=== PATIENT | male | born 1955 | race Caucasian/White ===

== ENCOUNTER → 2019-11-19 08:38 | Outpatient (BNVA) | payer MEDICARE, SELFPAY | PROVIDERS: Family Provider Family Medicine; Visit Provider Nurse Practitioner | DX: F20.5 Residual schizophrenia (principal); F17.210 Nicotine dependence, cigarettes, uncomplicated | CPT/HCPCS: 99213 ==

== ENCOUNTER → 2020-02-11 08:23 | Outpatient (BNVA) | payer MEDICARE, SELFPAY | PROVIDERS: Family Provider Family Medicine; Visit Provider Nurse Practitioner | DX: F20.5 Residual schizophrenia (principal) | CPT/HCPCS: 99213 ==

== ENCOUNTER → 2020-04-28 14:17 | Outpatient (BNVA) | payer MEDICARE, SELFPAY | PROVIDERS: Family Provider Family Medicine; Visit Provider Family Medicine | DX: R31.9 Hematuria, unspecified (principal); F20.5 Residual schizophrenia; Z68.21 Body mass index [BMI] 21.0-21.9, adult; F10.929 Alcohol use, unspecified with intoxication, unspecified; F17.210 Nicotine dependence, cigarettes, uncomplicated | CPT/HCPCS: 80053; 81003 ==

== ENCOUNTER → 2020-05-10 07:58 | Outpatient (BNVA) | payer MEDICARE, SELFPAY | PROVIDERS: Family Provider Family Medicine; Visit Provider Nurse Practitioner | DX: F20.5 Residual schizophrenia (principal); F17.219 Nicotine dependence, cigarettes, with unspecified nicotine-induced disorders; Z79.899 Other long term (current) drug therapy | CPT/HCPCS: 99213 ==

== ENCOUNTER → 2020-06-23 08:18 | Outpatient (BNVA) | payer MEDICARE, SELFPAY | PROVIDERS: Family Provider Family Medicine; Visit Provider Nurse Practitioner | DX: F20.5 Residual schizophrenia (principal); F17.219 Nicotine dependence, cigarettes, with unspecified nicotine-induced disorders | CPT/HCPCS: 99213 ==

== ENCOUNTER → 2020-09-06 08:20 | Outpatient (BNVA) | payer MEDICARE, SELFPAY | PROVIDERS: Family Provider Family Medicine; Visit Provider Nurse Practitioner | DX: F20.5 Residual schizophrenia (principal); F17.219 Nicotine dependence, cigarettes, with unspecified nicotine-induced disorders | CPT/HCPCS: 99213 ==

== ENCOUNTER → 2020-11-25 09:08 | Outpatient (BNVA) | payer MEDICARE, SELFPAY | PROVIDERS: Family Provider Family Medicine; Visit Provider Nurse Practitioner | DX: F20.5 Residual schizophrenia (principal); F17.219 Nicotine dependence, cigarettes, with unspecified nicotine-induced disorders | CPT/HCPCS: 99214 ==

== ENCOUNTER → 2020-12-29 08:35 | Outpatient (BNVA) | payer MEDICARE, SELFPAY | PROVIDERS: Family Provider Family Medicine; PCP Family Medicine; Visit Provider Family Medicine | DX: I10 Essential (primary) hypertension (principal); F17.219 Nicotine dependence, cigarettes, with unspecified nicotine-induced disorders | CPT/HCPCS: 80053; 80061; 81015; 82043; 85025 ==

== ENCOUNTER → 2021-02-23 11:55 | Outpatient (BNVA) | payer MEDICARE, SELFPAY | PROVIDERS: Family Provider Family Medicine; PCP Family Medicine; Visit Provider Nurse Practitioner | DX: F20.5 Residual schizophrenia (principal); F17.219 Nicotine dependence, cigarettes, with unspecified nicotine-induced disorders | CPT/HCPCS: 99214 ==

== ENCOUNTER 2021-03-09 10:44 | Outpatient (CLI) | payer MEDICARE, SELFPAY ==
--- NOTE | 2021-03-09 11:00 | USCV_ITS ---
Al Han Age: 65 Gender: M : 1955 Exam Date: 03/09/2021 11:09 Ordering Phys: Llua Torres DO Technologist: Exam [place] [facility] [place]: AAA HISTORY: Diameter (cm) AP x Transverse x Length Velocity (cm/s) Waveform Prox Aorta: 2.11 x 2.33 x 51.50 Biphasic Mid Aorta: 2.66 x 2.72 x 61.90 Biphasic Distal Aorta: 3.03 x 3.17 x 43.30 Biphasic Right Iliac Prox: 1.10 x 1.50 x 79.10 Biphasic Left Iliac Prox: 1.31 x 1.41 x 94.10 Biphasic Stent Prox Landing x x Aneurysmal Sac Max x x Lt Lat Sac Dim Rt Lat Sac Dim Stent Dist Landing x x Right Iliac Stent x x Left Iliac Stent x x Right Renal Art Left Renal Art FINDINGS: Minimal to moderate plaque in the abdominal aorta. Fusiform dilatation of the distal abdominal aorta. Normal Doppler flow velocity CONCLUSIONS 1. Small fusiform dilatation of the infrarenal aorta measuring 3.03 x 3.17 cm. 2. Ectatic perirenal aorta 3. Mild diffuse plaques in the abdominal aorta No similar previous studies are available for comparison Dr Dmitri Anderson MD [facility] (Electronically Signed) Final Date: 09 March 2021 17:57 S
== END 2021-03-09 10:45 | disposition home or self-care (01) ==
PROVIDERS: PCP Family Medicine; Visit Provider Family Medicine
DX: I71.4 Abdominal aortic aneurysm, without rupture (principal)
CPT/HCPCS: 93978

== ENCOUNTER → 2021-05-18 12:47 | Outpatient (BNVA) | payer MEDICARE, SELFPAY | PROVIDERS: Family Provider Family Medicine; PCP Family Medicine; Visit Provider Nurse Practitioner | DX: F20.5 Residual schizophrenia (principal); F17.219 Nicotine dependence, cigarettes, with unspecified nicotine-induced disorders; F10.21 Alcohol dependence, in remission | CPT/HCPCS: 80061; 99214 ==

== ENCOUNTER → 2021-08-17 11:02 | Outpatient (BNVA) | payer MEDICARE, SELFPAY | PROVIDERS: Family Provider Family Medicine; PCP Family Medicine; Visit Provider Nurse Practitioner | DX: F20.5 Residual schizophrenia (principal); F17.219 Nicotine dependence, cigarettes, with unspecified nicotine-induced disorders; F10.21 Alcohol dependence, in remission | CPT/HCPCS: 80053; 99214; G0103 ==

== ENCOUNTER → 2021-11-13 09:05 | Outpatient (BNVA) | payer MEDICARE, SELFPAY | PROVIDERS: Family Provider Family Medicine; PCP Family Medicine; Visit Provider Urology | DX: Z85.46 Personal history of malignant neoplasm of prostate (principal) | CPT/HCPCS: G0103 ==

== ENCOUNTER → 2021-11-23 11:11 | Outpatient (BNVA) | payer MEDICARE, SELFPAY | PROVIDERS: Family Provider Family Medicine; PCP Family Medicine; Visit Provider Nurse Practitioner | DX: F20.5 Residual schizophrenia (principal); F17.219 Nicotine dependence, cigarettes, with unspecified nicotine-induced disorders; F10.21 Alcohol dependence, in remission | CPT/HCPCS: 99214 ==

== ENCOUNTER 2022-02-08 10:20 | Outpatient (CLI) | payer MEDICARE, SELFPAY ==
--- NOTE | 2022-02-08 11:15 | USCV_ITS ---
HanAl vasquez Age: 66 Gender: M : 1955 Exam Date: 02/08/2022 10:48 Ordering Phys: Lula Torres DO Technologist: Exam Location: [facility] – [place] Indication: aaa HISTORY: Diameter (cm) AP x Transverse x Length Velocity (cm/s) Waveform Prox Aorta: 1.41 x 1.47 x 78.40 Mid Aorta: 4.03 x 4.06 x 80.10 Distal Aorta: 4.09 x 4.00 x 51.20 Right Iliac Prox: 1.47 x 1.42 x 105.60 Left Iliac Prox: 1.20 x 1.39 x 158.40 Stent Prox Landing x x Aneurysmal Sac Max x x Lt Lat Sac Dim Rt Lat Sac Dim Stent Dist Landing x x Right Iliac Stent x x Left Iliac Stent x x Right Renal Art Left Renal Art FINDINGS: Comparison:. 03/09/21 A fusiform abdominal aortic aneurysm is noted with a maximal diameter of 4.1 cm. The exact measurement is difficult due to the calcification and poor definition of the posterior aorta wall. Increase is size since the prior exam. There is evidence of atherosclerotic plaque no significan stenosis in the right common iliac artery. There is evidence of atherosclerotic plaque no significan stenosis in the left common iliac artery. CONCLUSIONS Mild increase in size of the AAA since 03/09/21. Maximum diameter of 4.1 cm. Recommend CTA evaluation to confirm size. Difficult to see posterior wall of the aorta. Dr. Maria Elena Parisi DO (Electronically Signed) Final Date: 08 Feb 2022 14:00 S
== END 2022-02-08 10:21 | disposition home or self-care (01) ==
LOC: RAD 10:22
PROVIDERS: PCP Family Medicine; Visit Provider Family Medicine
DX: I71.4 Abdominal aortic aneurysm, without rupture (principal)
CPT/HCPCS: 93978

== ENCOUNTER → 2022-02-15 11:21 | Outpatient (BNVA) | payer MEDICARE, SELFPAY | PROVIDERS: PCP Family Medicine; Visit Provider Nurse Practitioner | DX: F20.5 Residual schizophrenia (principal); F17.219 Nicotine dependence, cigarettes, with unspecified nicotine-induced disorders; F10.21 Alcohol dependence, in remission | CPT/HCPCS: 80053; 82043; 85025; 99214 ==

== ENCOUNTER 2022-03-08 10:09 | Outpatient (CLI) | payer MEDICARE, SELFPAY ==
--- NOTE | 2022-03-08 10:21 | CT_ITS ---
WS: [id number] CT ANGIOGRAPHY ABDOMEN AORTA HISTORY: aaa TECHNIQUE: CT angiogram is performed during IV injection. Reformation images reviewed. All CT scans a t [employer] use at least one of these dose optimization techniques: automated exposure contro l; mA and/or kV adjustment per patient size (includes targeted exams where dose is matched to clinica l indication); or iterative reconstruction. CONTRAST: Omnipaque 350; 95 mL IV. DLP: 512.71 mGy.cm COMPARISON: Ultrasound 02/08/2022 Chronic emphysematous changes at the lung bases. No pneumonia. Normal size heart. Small hiatal hernia . Mild tricuspid regurgitation into hepatic veins. Abdominal aorta: Tortuous atherosclerotic changes throughout the aorta with mild dilatation. Maximum diameter of aorta is 3.6 cm. This is less than the ultrasound evaluation which must have been overest imated. Moderate calcified plaque with mild intimal thickening throughout. Mild ectasia of the suprar enal aorta. Aneurysm tapers to the bifurcation. Moderate calcification involving the proximal iliac a rteries. There is at least moderate stenosis involving the proximal iliac arteries bilaterally, great er stenosis on the RIGHT. No complete occlusion. Celiac axis and SMA are patent. Renal arteries are p atent with a mild stenosis involving the LEFT renal artery. Early enhancement of the liver and spleen and pancreas are negative for any acute abnormalities. Norm al bile duct. No adrenal mass. LEFT renal cyst measures 5.0 x 4.0 cm. No obstruction of either kidney . No ascites or adenopathy. Slightly contracted gallbladder. CT/CT angio abdomen [id number] IMPRESSION: 1. Marked tortuosity, ectasia and atherosclerosis abdominal aorta. 2. Maximum diameter of the abdominal aorta is 3.6 cm. 3. Moderate to high-grade stenosis involving the proximal iliac arteries bilat erally, greatest on the RIGHT. 4. LEFT renal cyst.
[2022-03-08] MEDS: iohexol 350 mg/mL 100 mL Btl IV (10:52)
== END 2022-03-08 10:10 | disposition home or self-care (01) ==
LOC: RAD 10:10
PROVIDERS: PCP Family Medicine; Visit Provider Family Medicine
DX: I71.4 Abdominal aortic aneurysm, without rupture (principal); I70.0 Atherosclerosis of aorta; I77.811 Abdominal aortic ectasia; I70.8 Atherosclerosis of other arteries; N28.1 Cyst of kidney, acquired
CPT/HCPCS: 74175

== ENCOUNTER → 2022-06-07 10:40 | Outpatient (BNVA) | payer MEDICARE, SELFPAY | PROVIDERS: PCP Family Medicine; Visit Provider Internal Medicine | DX: I73.9 Peripheral vascular disease, unspecified (principal); I10 Essential (primary) hypertension; F17.210 Nicotine dependence, cigarettes, uncomplicated | CPT/HCPCS: 99204 ==

== ENCOUNTER 2022-06-17 01:27 | Emergency (ER) | payer MEDICARE, SELFPAY ==
[2022-06-17 01:31] VITALS: BP 146/86; PULSE 86; RESP 16; TEMP 36.7; O2SAT 94; BMI 23.0
--- NOTE | 2022-06-17 02:16 | XRR_ITS ---
PROCEDURE INFORMATION: Exam: XR Chest Exam date and time: 06/17/2022 2:26 AM Age: 66 years old Clinical indication: Pain; Chest pressure; Additional info: SOB TECHNIQUE: Imaging protocol: Radiologic exam of the chest. Views: 1 view. COMPARISON: CR XR chest 1V [id number] 12/02/2016 6:17 PM FINDINGS: Lungs: There is no evidence of focal pulmonary consolidation. There is mild pulmonary hyperexpansion. Pleural spaces: No pleural effusion or pneumothorax. There is redemonstration of multiple calcified left lung granulomas, stable. Heart/Mediastinum: The heart and mediastinum are normal in size. Bones/joints: Old right clavicular fracture. XR/XR chest 1V portable [id number] IMPRESSION: 1. No acute findings. 2. Mild pulmonary hyperexpansion.
[2022-06-17 02:32] VITALS: BP 132/98
[2022-06-17 02:55] LABS: Basophils # 0.1 10^3/uL (0.0-0.1); Basophils % 0.6 %; Eosinophils # 0.1 10^3/uL (0.0-0.8); Eosinophils % 1.3 %; Hematocrit 39.6 % (42.0-52.0); Hemoglobin 13.9 g/dL (11.7-16.6); Lymphocytes # 2.2 10^3/uL (0.8-4.8); Lymphocytes % 27.6 %; Mean Corpuscular HGB Conc 35.1 g/dL (30.0-36.0); Mean Corpuscular Hemoglobin 33.6 pg (28.0-34.0); Mean Corpuscular Volume 95.7 fl (80-94); Monocytes # 0.6 10^3/uL (0.2-0.9); Monocytes % 7.1 %; Neutrophils # 4.95 10^3/uL (1.8-7.7); Neutrophils % 63.1 %; Nucleated Red Blood Cells % 0 %; Platelet Count 184 10^3/cmm (130-400); Red Blood Count 4.14 10^6/uL (4.1-5.3); Red Cell Distribution Width 13.1 % (12.1-15.1); White Blood Count 7.8 10^3/uL (4.0-10.0)
[2022-06-17 03:13] LABS: Bilirubin Urine Negative (Negative); Blood Urine Large (Negative); Glucose Urine UA Negative (Normal); Ketones Urine Negative (Negative); Leukocyte Esterase Urine Negative (Negative); Nitrate Urine Negative; Protein Urine Negative; Urine Appearance Clear (CLEAR); Urine Color Yellow (Yellow); Urobilinogen Urine 0.2 mg/dL (Negative)
[2022-06-17 03:19] LABS: Add Urine Culture? Yes; Add Urine Microscopic? YES; Bacteria Urine TRACE /hpf; RBC Urine >100 /hpf (0-2); Squamous Epithelial Cell Urine 0-4 /hpf (0-5); WBC Urine 0-4 /hpf (0-5)
[2022-06-17 03:23] LABS: Amphetamines Screen Urine Negative (Negative); Barbiturates Screen Urine Negative (Negative); Benzodiazepines Screen Urine Negative (Negative); Cocaine Screen Urine Negative (Negative); Opiate Screen Urine Negative (Negative); PCP Screen Urine Negative (Negative); THC Screen Urine Negative (Negative)
[2022-06-17 03:26] LABS: Alanine Aminotransferase 10 U/L (0-41); Albumin Level 4.4 g/dL (3.5-5.2); Alkaline Phosphatase 91 U/L (40-130); Anion Gap 16.8 (5-19); Aspartate Amino Transferase 11 U/L (0-40); Blood Urea Nitrogen 6 mg/dL (8-23); Calcium 9.3 mg/dL (8.5-10.5); Carbon Dioxide 22 mmol/L (22-29); Chloride 96 mmol/L (98-107); Globulin 2.5 g/dL (1.3-4.6); Glomerular Filtration Rate 167.4 mL/min (90-130); Glucose 123 mg/dL (65-115); Osmolality Calculated 271 mOsm/kg (285-295); Potassium 3.8 mmol/L (3.5-5.1); Sodium 131 mmol/L (136-145); Total Bilirubin 0.4 mg/dL (0.15-1.2); Total Protein 6.9 g/dL (6.6-8.7)
[2022-06-17 03:29] LABS: Acetaminophen < 5.0 ug/mL (10-30); Alcohol Level < 10 mg/dL (0-10); Salicylate < 0.3 mg/dL (3-10)
--- NOTE | 2022-06-17 03:33 | ED.C_ITS ---
HPI - Psych General: Chief Complaint: Psychiatric Symptoms Stated Complaint: AMS Time Seen by Provider: 06/17/22 01:47 History of Present Illness: 66-year-old male gentleman with a history of schizophrenia. He presents with multiple complaints. First of all, he states that he has lice, which she has treated with 1 dose of permethrin. He also believes that he is septic, because he has been short of breath, more so than usual with a cough with sputum production. He denies any fever. He has had chills. No body aches. No abdominal pain or diarrhea. 's interview was somewhat difficult due to lack of concentration. He seems to have flight of ideas with some tangential speech. He also reacts to unseen stimuli. He states that he has received multiple threats from his neighbors, who have been harassing him both verbally and electronically. Associated symptoms: Reports auditory hallucinations and visual hallucinations; Deny homicidal ideation or suicidal ideation Review of Systems 2 Const: Reports: chills; Denies: fever(s) Eyes: Denies: change in vision ENMT: Denies: throat pain Card: Denies: chest pain or palpitations Resp: Reports: dyspnea and productive cough GI: Denies: abdominal pain, nausea, vomiting or diarrhea Neuro: Denies: headache(s) Psych: Reports: irritability, visual hallucinations and auditory hallucinations; Denies: suicidal ideation or homicidal ideation [facility] ED PFSH: Medical History Alcohol dependence, in remission Aortic aneurysm Last looked at on 03/05 - 3.1 cm Bladder cancer COPD (chronic obstructive pulmonary disease) Erectile dysfunction External otitis of left ear On combination antipsychotic drug therapy Psychiatric care Residual schizophrenia Surgical History S/P appendectomy S/P TURP Family History Other Cancer Diabetes Social History Smoking and tobacco status: current every day smoker cigarettes Packs smoked per day: 2 Smoking risk assessment/counseling performed?: Yes Tobacco counseling given: counseling >3 minutes Alcohol intake: former Physical Exam Const: COMMON NORMALS: no acute distress GENERAL APPEARANCE: cooperative; not ill appearing and not frail appearing HENMT: COMMON NORMALS: normocephalic, atraumatic and Normal external nose present HEAD & SCALP: normocephalic and atraumatic FACE & SINUS: normal facial exam and face symmetric NOSE: Normal external nose present and Normal nares present Eye: COMMON NORMALS: Equal, round and reactive pupils present and EOMs intact bilaterally PUPIL: Yes Equal, round and reactive pupils present Neck/C-Spine: COMMON NORMALS: full ROM GENERAL: Yes trachea midline Chest: CHEST: Yes Symmetrical chest wall rise Resp: COMMON NORMALS: normal respiratory effort, No use of accessory muscles and clear to auscultation bilaterally AUSCULTATION: clear to auscultation bilaterally Cardio: COMMON NORMALS: regular rate and regular rhythm RATE: regular rate RHYTHM: regular rhythm GI: COMMON NORMALS: Normal to inspection, nondistended, normoactive bowel s ounds present, Soft to palpation and non-tender PALPATION: Yes Soft to pa lpation Extremity: COMMON NORMALS: no pedal edema Neuro: GILBERT COMA SCALE: document GCS findings Jennings coma scale eye opening: Spontaneous Gilbert coma scale verbal response: Orientated Gilbert coma scale motor response: Obey commands Gilbert coma scale total score: 15 ON CALL NIAL NERVES: Yes CN normal except as noted SPEECH: speech normal Psych: COMMON NORMALS: speech normal, denies homicidal ideation and denies suicidal ideation ATTITUDE: Yes paranoid (mildly at times) ACTIVITY/MOTOR BEHAVIOR: Yes appropriate eye contact SPEECH: Yes normal speech THOUGHT PROCESS: Circumstantial thought process present, disorganized and Flight of ideas present THOUGHT CONTENT: No Suicidality present, No Homicidality present and Yes Hallucination(s) present auditory ATTENTION/CONCENTRATION: Yes attention grossly impaired MEMORY/COGNITION: Yes memory grossly intact and Yes cognition grossly intact INSIGHT: Fair insight present (Psych) and Limited insight present (Psych) JUDGEMENT: Fair judgement present (Psych) Skin: COMMON NORMALS: no rashes or lesions noted GENERAL SKIN EXAM: no rashes or lesions noted Course Vital Signs: Vital signs: Vital Signs Temperature 98.1 F 06/17/22 01:31 Pulse Rate 86 06/17/22 01:31 Respiratory Rate 16 06/17/22 01:31 Blood Pressure 132/98 06/17/22 02:32 Pulse Oximetry 94 06/17/22 01:31 Oxygen Delivery Me thod 06/17/22 01:31 MDM - Psych Medical Decision Making 66-year-old male with multiple complaints. He believes he is septic. His chest x-ray does not show an infiltrate. His CBC is normal. His BNP is not remarkable. His liver enzymes are not significantly elevated. His urinalysis shows hematuria without infection. The patient states that he is not feeling safe at home due to these Persecutory thoughts. He believes that his neighbors are out to get them. He exhibits some paranoia here. He denies suicidal or homicidal ideation. We are seeing if a bed is available in the [facility] for him. No beds available here. Since he is not suicidal or homicidal, he does not necessarily meet criteria for transfer to psychiatric facility. Medically he remained stable. He is not hypoxic. He will be allowed the choice to be discharged. Patient chose discharge ultimately. Lab Data : 06/17/22 02:50 06/17/22 02:50 Radiology Impressions Chest X-Ray 06/17/22 02:16 IMPRESSION: 1. No acute findings. 2. Mild pulmonary hyperexpansion. Laboratory Results WBC 7.8 10^3/uL (4.0-10.0) 06/17/22 02:50 RBC 4.14 10^6/uL (4.1-5.3) 06/17/22 02:50 Hgb 13.9 g/dL (11.7-16.6) 06/17/22 02:50 Hct 39.6 % (42.0-52.0) L 06/17/22 02:50 MCV 95.7 fl (80-94) H 06/17/22 02:50 MCH 33.6 pg (28.0-34.0) 06/17/22 02:50 MCHC 35.1 g/dL (30.0-36.0) 06/17/22 02:50 RDW 13.1 % (12.1-15.1) 06/17/22 02:50 Plt Count 184 10^3/cmm (130-400) 06/17/22 02:50 MPV 8.0 fL (7.4-10.4) 06/17/22 02:50 Neut % (Auto) 63.1 % 06/17/22 02:50 Lymph % (Auto) 27.6 % 06/17/22 02:50 [place] % (Auto) 7.1 % 06/17/22 02:50 Eos % (Auto) 1.3 % 06/17/22 02:50 Baso % (Auto) 0.6 % 06/17/22 02:50 Neut # (Auto) 4.95 10^3/uL (1.8-7.7) 06/17/22 02:50 Lymph # (Auto) 2.2 10^3/uL (0.8-4.8) 06/17/22 02:50 [place] # (Auto) 0.6 10^3/uL (0.2-0.9) 06/17/22 02:50 Eos # (Auto) 0.1 10^3/uL (0.0-0.8) 06/17/22 02:50 Baso # (Auto) 0.1 10^3/uL (0.0-0.1) 06/17/22 02:50 Nucleated RBC % (auto) 0 % 06/17/22 02:50 Nucleated RBCs # 0.0 /100WBC 06/17/22 02:50 Sodium 131 mmol/L (136-145) L 06/17/22 02:50 Potassium 3.8 mmol/L (3.5-5.1) 06/17/22 02:50 Chloride 96 mmol/L (98-107) L 06/17/22 02:50 Carbon Dioxide 22 mmol/L (22-29) 06/17/22 02:50 Anion Gap 16.8 (5-19) 06/17/22 02:50 BUN 6 mg/dL (8-23) L 06/17/22 02:50 Creatinine 0.5 mg/dL (0.7-1.2) L 06/17/22 02:50 GFR Calculation 167.4 mL/min (90-130) H 06/17/22 02:50 Glucose 123 mg/dL (65-115) H 06/17/22 02:50 Calculated Osmolality 271 mOsm/kg (285-295) L 06/17/22 02:50 Calcium 9.3 mg/dL (8.5-10.5) 06/17/22 02:50 Total Bilirubin 0.4 mg/dL (0.15-1.2) 06/17/22 02:50 AST 11 U/L (0-40) 06/17/22 02:50 ALT 10 U/L (0-41) 06/17/22 02:50 Alkaline Phosphatase 91 U/L (40-130) 06/17/22 02:50 Total Protein 6.9 g/dL (6.6-8.7) 06/17/22 02:50 Albumin 4.4 g/dL (3.5-5.2) 06/17/22 02:50 Globulin 2.5 g/dL (1.3-4.6) 06/17/22 02:50 Urine Color Yellow (Yellow) 06/17/22 03:07 Urine Appearance Clear (CLEAR) 06/17/22 03:07 Urine pH 6.0 (5-7) 06/17/22 03:07 Ur Specific [place]lett 1.010 (1.005-1.030) 06/17/22 03:07 Urine Protein Negative 06/17/22 03:07 Urine Glucose (UA) Negative (Normal) 06/17/22 03:07 Urine Ketones Negative (Negative) 06/17/22 03:07 Urine Blood Large (Negative) A 06/17/22 03:07 Urine Nitrate Negative 06/17/22 03:07 Urine Bilirubin Negative (Negative) 06/17/22 03:07 Urine Urobilinogen 0.2 mg/dL (Negative) 06/17/22 03:07 Ur Leukocyte Esterase Negative (Negative) 06/17/22 03:07 Urine RBC >100 /hpf (0-2) H 06/17/22 03:07 Urine WBC 0-4 /hpf (0-5) H 06/17/22 03:07 Ur Squamous Epith Cells 0-4 /hpf (0-5) H 06/17/22 03:07 Amorphous Sediment Not Reportable 06/17/22 03:07 Urine Bacteria Trace /hpf (NONE) 06/17/22 03:07 Salicylates < 0.3 mg/dL (3-10) L 06/17/22 02:50 Urine Opiates Screen Negative ng/mL (Negative) 06/17/22 03:07 Acetaminophen < 5.0 ug/mL (10-30) L 06/17/22 02:50 Ur Barbiturates Screen Negative ng/mL (Negative) 06/17/22 03:07 Ur Phencyclidine Scrn Negative ng/mL (Negative) 06/17/22 03:07 Ur Amphetamines Screen Negative ng/mL (Negative) 06/17/22 03:07 U Benzodiazepines Scrn Negative ng/mL (Negative) 06/17/22 03:07 Urine Cocaine Screen Negative ng/mL (Negative) 06/17/22 03:07 U Marijuana (THC) Screen Negative ng/mL (Negative) 06/17/22 03:07 Ethyl Alcohol < 10 mg/dL (0-10) 06/17/22 02:50 SARS-CoV-2 Ag (Rapid) Negative (Negative) 06/17/22 05:10 Discharge Plan Discharge Patient Disposition: Home Clinical Impression: COPD (chronic obstructive pulmonary disease) Condition: Stable Prescriptions: No Action metoprolol tartrate 25 mg tablet 12.5 mg PO BID Qty: 90 1RF permethrin 5 % cream 1 applic topical Q14D Qty: 60 0RF Rx Instructions: apply second treatment 14 days after first treatment if live lice remain quetiapine 300 mg tablet 150 mg PO .HS Qty: 45 0RF atorvastatin 40 mg tablet 40 mg PO DAILY 90 Days Qty: 90 1RF albuterol sulfate [Ventolin HFA] 90 mcg/actuation HFA aerosol inhaler 2 puff inhalation Q6H PRN (Reason: shortness of breath or wheezing) Qty: 8.5 3RF haloperidol lactate 2 mg/mL concentrate 2 mg PO DAILY Qty: 120 0RF amlodipine [Norvasc] 5 mg tablet 5 mg PO BID 90 Days Qty: 180 1RF trihexyphenidyl 2 mg tablet 2 mg PO TID Qty: 270 0RF Discharge Orders: Discharge ED (Routine); Ordered 06/17/22 Ordered By: Lm Melissa Referrals: Lula Torres DO [Primary Care Provider] - 1-3 days Patient Instructions: COPD (Chronic Obstructive Pulmonary Disease) (ED) Activity Restrictions/Additional Instructions: Return for worsening shortness of breath, fever greater than 100, chest pain, or any thoughts or wishes to harm your self or anyone else Coding Level of Care Code ED Car Filler for Chg Fwd Exam Comprehensive
--- NOTE | 2022-06-17 05:12 | ECG_ITS ---
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 Measurements Intervals [place] Rate: 75 P: 64 NC: 219 QRS: -35 QRSD: 71 T: 55 QT: 337 QTc: 377 Interpretive Statements SINUS RHYTHM WITH SINUS ARRHYTHMIA WITH FIRST DEGREE AV BLOCK LEFT AXIS DEVIATION [QRS AXIS < -30] Compared to ECG 06/08/2018 23:10:58 First degree AV block now present Left-axis deviation now present Sinus tachycardia no longer present Left anterior fascicular block no longer present Electronically Signed On 06-17-2022 22:01:02 CDT by Michoacano Mendez M.D. [id number]
[2022-06-17 06:13] LABS: SARS Covid-2 Antigen Negative (Negative)
== END 2022-06-17 05:40 | disposition home or self-care (01) ==
PROVIDERS: Emergency Provider Emergency Medicine; PCP Family Medicine
DX: J44.9 Chronic obstructive pulmonary disease, unspecified (principal); Z20.822 Contact with and (suspected) exposure to COVID-19; Z85.51 Personal history of malignant neoplasm of bladder; F17.210 Nicotine dependence, cigarettes, uncomplicated
CPT/HCPCS: 71045; 80053; 80306; 80307; 81001; 85025; 87086; 87426; 93005; 99285

== ENCOUNTER 2022-06-22 10:00 | Emergency (ER) | payer MEDICARE, SELFPAY ==
[2022-06-22 10:02] VITALS: BP 116/86; PULSE 85; RESP 16; TEMP 36.6; O2SAT 96; BMI 22.3
--- NOTE | 2022-06-22 10:26 | ECG_ITS ---
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 Measurements Intervals [place] Rate: 85 P: 74 [place]: 209 QRS: -53 QRSD: 75 T: 56 QT: 336 QTc: 401 Interpretive Statements SINUS RHYTHM LEFT AXIS DEVIATION [QRS AXIS < -30] Compared to ECG 06/17/2022 05:12:31 Sinus arrhythmia no longer present First degree AV block no longer present Electronically Signed On 06-22-2022 14:47:27 CDT by Michoacano Mendez M.D. [id number]
--- NOTE | 2022-06-22 10:33 | XR_ITS ---
WS: [id number] XR chest 1V portable [id number] REASON FOR EXAM: dyspnea/cough FINDINGS: The chest is unchanged compared to 06/27/2022. Mild to moderate tortuosity of thoracic aorta with normal heart size. Calcified granulomatous disease in both hemithoraces. No acute pulmonary parenchymal or pleural abnormality. Moderate degenerative spondylosis in the mid and lower thoracic spine. XR/XR chest 1V portable [id number] IMPRESSION: Stable chest with no acute abnormality.
--- NOTE | 2022-06-22 11:01 | ED_ITS ---
HPI - General Adult General: Chief complaint: General Medical Stated complaint: HEAD LICE Time Seen by Provider: 06/22/22 10:03 Source: patient Mode of arrival: ambulatory Limitations: no limitations History of Present Illness: 66-year-old male presents to the emergency room with complaints of rapid heart rate and low blood pressure this morning. He checked his heart rate and blood pressure he said his heart rate was 121 and his blood pressure was 90/70. He called his primary care doctor advised him to go to emergency room to be checked out. He is recently been treated for lice. He has a history schizophrenia, hypertension, And hyperlipidemia.Patient denies any chest pain or shortness of breath at this time. Onset (ago): hour(s) Pain Consistency: now resolved Relieving factors: none Exacerbating factors: none Associated symptoms: Deny chest pain, confusion, cough, diaphoresis, decreased appetite, dyspnea, fevers/chills, headache(s), malaise, nausea, rash, palpitations, seizures, short of breath, syncope, vomiting or weakness Treatments prior to arrival: none Review of Systems Const: Denies: malaise or diaphoresis ENMT: Denies: throat pain, ear or mastoid pain, nasal discharge or nasal congestion Card: Denies: chest pain, palpitations or syncope Resp: Denies: dyspnea GI: Denies: abdominal pain, nausea or vomiting : Denies: flank pain, difficulty urinating, dysuria, urinary frequency or urinary urgency Musc: Denies: neck pain or back pain Skin/Breast: Denies: rash Neuro: Denies: headache(s) or confusion Psych: Reports: anxiety PFSH ED PFSH: Medical History Alcohol dependence, in remission Aortic aneurysm Last looked at on 03/05 - 3.1 cm Bladder cancer COPD (chronic obstructive pulmonary disease) Erectile dysfunction External otitis of left ear On combination antipsychotic drug therapy Psychiatric care Residual schizophrenia Surgical History S/P appendectomy S/P TURP Family History Other Cancer Diabetes Social History Smoking and tobacco status: current every day smoker cigarettes Packs smoked per day: 2 Smoking risk assessment/counseling performed?: Yes Tobacco counseling given: counseling >3 minutes Alcohol intake: former Physical Exam Const: COMMON NORMALS: no acute distress GENERAL APPEARANCE: cooperative and comfortable ORIENTATION/CONSCIOUSNESS: Yes awake, Yes oriented to person, Yes oriented to place and Yes oriented to time HENMT: COMMON NORMALS: normocephalic, atraumatic, hearing grossly normal bilaterally, external ears normal, EAC's normal, TM's normal bilaterally and Normal nasal mucous membranes and turbinates present HEAD & SCALP: normocephalic and atraumatic NOSE: Normal nasal mucous membranes and turbinates present EXTERNAL EAR: Yes external ears normal EXTERNAL AUDITORY CANAL: EAC's normal TYMPANIC MEMBRANE: TM's normal bilaterally Eye: COMMON NORMALS: Equal, round and reactive pupils present, EOMs intact bilaterally, conjunctivae normal and no scleral icterus CONJUNCTIVA: Yes conjunctivae normal PUPIL: Yes Equal, round and reactive pupils present Neck/C-Spine: COMMON NORMALS: full ROM, no lymphadenopathy, supple and no JVD Lymph: LYMPHATIC: no lymphadenopathy noted and no lymphedema noted Resp: COMMON NORMALS: normal respiratory effort, No retractions, No use of accessory muscles and clear to auscultation bilaterally AUSCULTATION: clear to auscultation bilaterally Cardio: COMMON NORMALS: no JVD, regular rate, regular rhythm and No murmurs present (Cardio) RATE: regular rate RHYTHM: regular rhythm GI: COMMON NORMALS: Soft to palpation and No hepatosplenomegaly present AUSCULTATION: Yes normoactive bowel sounds PALPATION: Yes Soft to palpation, No Tenderness to palpation present (GI), No Guarding due to palpation present (GI) and Yes No hepatosplenomegaly present Extremity: COMMON NORMALS: normal to inspection, capillary refill normal, no clubbing, cyanosis or edema, no calf tenderness and no pedal edema Neuro: SENSORIUM/ORIENTATION: Yes oriented to person, Yes oriented to place and Yes oriented to time Skin: COMMON NORMALS: no rashes or lesions noted GENERAL SKIN EXAM: no rashes or lesions noted Course Vital Signs: Vital signs: Vital Signs Temperature 97.8 F 06/22/22 10:02 Pulse Rate 70 06/22/22 15:53 Respiratory Rate 15 06/22/22 15:53 Blood Pressure 149/83 06/22/22 15:53 Pulse Oximetry 93 06/22/22 15:53 Oxygen Delivery Me thod 06/22/22 15:53 MDM - General Adult Medical Decision Making Labs imaging and EKG are unremarkable. No significant findings at this time. No evidence of acute coronary syndrome or SVT A. fib or any other arrhythmia. His blood pressure is adequately controlled. He is extremely anxious. He has not been taking the Haldol regularly and it in talking to him it sounds as if it does not last long enough to manage his issues. We will have him stop the Haldol and instead start Risperdal 1 p.o. twice daily and have him follow-up with his primary care doctor and psychiatrist within the next week. Medical Records I reviewed the patient's medical records. Lab Data I reviewed the patient's lab results. : 06/22/22 13:30 06/22/22 13:30 Radiology Impressions Chest X-Ray 06/22/22 10:33 IMPRESSION: Stable chest with no acute abnormality. Laboratory Results WBC 6.6 10^3/uL (4.0-10.0) 06/22/22 13:30 RBC 4.48 10^6/uL (4.1-5.3) 06/22/22 13:30 Hgb 15.1 g/dL (11.7-16.6) 06/22/22 13:30 Hct 43.0 % (42.0-52.0) 06/22/22 13:30 MCV 96.0 fl (80-94) H 06/22/22 13:30 MCH 33.7 pg (28.0-34.0) 06/22/22 13:30 MCHC 35.1 g/dL (30.0-36.0) 06/22/22 13:30 RDW 12.8 % (12.1-15.1) 06/22/22 13:30 Plt Count 192 10^3/cmm (130-400) 06/22/22 13:30 MPV 8.2 fL (7.4-10.4) 06/22/22 13:30 Neut % (Auto) 70.2 % 06/22/22 13:30 Lymph % (Auto) 19.7 % 06/22/22 13:30 [place] % (Auto) 8.1 % 06/22/22 13:30 Eos % (Auto) 0.9 % 06/22/22 13:30 Baso % (Auto) 0.5 % 06/22/22 13:30 Neut # (Auto) 4.61 10^3/uL (1.8-7.7) 06/22/22 13:30 Lymph # (Auto) 1.3 10^3/uL (0.8-4.8) 06/22/22 13:30 [place] # (Auto) 0.5 10^3/uL (0.2-0.9) 06/22/22 13:30 Eos # (Auto) 0.1 10^3/uL (0.0-0.8) 06/22/22 13:30 Baso # (Auto) 0.0 10^3/uL (0.0-0.1) 06/22/22 13:30 Nucleated RBC % (auto) 0 % 06/22/22 13:30 Nucleated RBCs # 0.0 /100WBC 06/22/22 13:30 Sodium 132 mmol/L (136-145) L 06/22/22 13:30 Potassium 4.1 mmol/L (3.5-5.1) 06/22/22 13:30 Chloride 91 mmol/L (98-107) L 06/22/22 13:30 Carbon Dioxide 27 mmol/L (22-29) 06/22/22 13:30 Anion Gap 18.1 (5-19) 06/22/22 13:30 BUN 7 mg/dL (8-23) L 06/22/22 13:30 Creatinine 0.7 mg/dL (0.7-1.2) 06/22/22 13:30 GFR Calculation 113.5 mL/min (90-130) 06/22/22 13:30 Glucose 88 mg/dL (65-115) 06/22/22 13:30 Calculated Osmolality 271 mOsm/kg (285-295) L 06/22/22 13:30 Calcium 9.8 mg/dL (8.5-10.5) 06/22/22 13:30 Total Bilirubin 0.9 mg/dL (0.15-1.2) 06/22/22 13:30 AST 14 U/L (0-40) 06/22/22 13:30 ALT 11 U/L (0-41) 06/22/22 13:30 Alkaline Phosphatase 84 U/L (40-130) 06/22/22 13:30 Total Protein 7.5 g/dL (6.6-8.7) 06/22/22 13:30 Albumin 4.9 g/dL (3.5-5.2) 06/22/22 13:30 Globulin 2.6 g/dL (1.3-4.6) 06/22/22 13:30 Discharge Plan Discharge Patient Disposition: Home Clinical Impression: Benign essential HTN, Residual schizophrenia, Heart palpitations Condition: Stable Prescriptions: New risperidone 1 mg tablet 1 mg PO BID Qty: 60 0RF Discontinued haloperidol lactate 2 mg/mL concentrate 2 mg PO DAILY Qty: 120 0RF No Action metoprolol tartrate 25 mg tablet 12.5 mg PO BID Qty: 90 1RF permethrin 5 % cream 1 applic topical Q14D Qty: 60 0RF Rx Instructions: apply second treatment 14 days after first treatment if live lice remain quetiapine 300 mg tablet 150 mg PO .HS Qty: 45 0RF atorvastatin 40 mg tablet 40 mg PO DAILY 90 Days Qty: 90 1RF albuterol sulfate [Ventolin HFA] 90 mcg/actuation HFA aerosol inhaler 2 puff inhalation Q6H PRN (Reason: shortness of breath or wheezing) Qty: 8.5 3RF amlodipine [Norvasc] 5 mg tablet 5 mg PO BID 90 Days Qty: 180 1RF trihexyphenidyl 2 mg tablet 2 mg PO TID Qty: 270 0RF Discharge Orders: Discharge ED (Routine); Ordered 06/22/22 Ordered By: Chris Fernandes Referrals: Lula Torres DO [Primary Care Provider] - Discharge Diet: Usual diet Discharge Activity: Resume usual activity Patient Instructions: Opioid Safety, Pain Management Activity Restrictions/Additional Instructions: Case management will make arrangements for follow-up at [facility]. Stop Haldol and start risperidone 1 mg twice daily Coding Level of Care Code ED Sales Office Manager for Chg Fwd Exam Detailed
[2022-06-22 13:50] LABS: Basophils % 0.5 %; Eosinophils # 0.1 10^3/uL (0.0-0.8); Eosinophils % 0.9 %; Hemoglobin 15.1 g/dL (11.7-16.6); Lymphocytes # 1.3 10^3/uL (0.8-4.8); Lymphocytes % 19.7 %; Mean Corpuscular HGB Conc 35.1 g/dL (30.0-36.0); Mean Corpuscular Hemoglobin 33.7 pg (28.0-34.0); Mean Platelet Volume 8.2 fL (7.4-10.4); Monocytes # 0.5 10^3/uL (0.2-0.9); Monocytes % 8.1 %; Neutrophils # 4.61 10^3/uL (1.8-7.7); Neutrophils % 70.2 %; Nucleated Red Blood Cells % 0 %; Platelet Count 192 10^3/cmm (130-400); Red Blood Count 4.48 10^6/uL (4.1-5.3); Red Cell Distribution Width 12.8 % (12.1-15.1); White Blood Count 6.6 10^3/uL (4.0-10.0)
--- NOTE | 2022-06-22 13:59 | ECG_ITS ---
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 Measurements Intervals [place] Rate: 71 P: 64 MD: 210 QRS: -56 QRSD: 83 T: 43 QT: 359 QTc: 392 Interpretive Statements SINUS RHYTHM WITH FIRST DEGREE AV BLOCK LEFT AXIS DEVIATION [QRS AXIS < -30] Compared to ECG 06/22/2022 10:26:30 First degree AV block now present Electronically Signed On 06-22-2022 22:00:36 CDT by Michoacano Mendez M.D. [id number]
[2022-06-22 14:07] LABS: Alanine Aminotransferase 11 U/L (0-41); Albumin Level 4.9 g/dL (3.5-5.2); Alkaline Phosphatase 84 U/L (40-130); Anion Gap 18.1 (5-19); Aspartate Amino Transferase 14 U/L (0-40); Blood Urea Nitrogen 7 mg/dL (8-23); Calcium 9.8 mg/dL (8.5-10.5); Carbon Dioxide 27 mmol/L (22-29); Chloride 91 mmol/L (98-107); Globulin 2.6 g/dL (1.3-4.6); Glomerular Filtration Rate 113.5 mL/min (90-130); Glucose 88 mg/dL (65-115); Osmolality Calculated 271 mOsm/kg (285-295); Potassium 4.1 mmol/L (3.5-5.1); Sodium 132 mmol/L (136-145); Total Bilirubin 0.9 mg/dL (0.15-1.2); Total Protein 7.5 g/dL (6.6-8.7)
[2022-06-22 15:53] VITALS: BP 149/83; PULSE 70; RESP 15; O2SAT 93
== END 2022-06-22 18:00 | disposition home or self-care (01) ==
PROVIDERS: Emergency Provider Family Medicine; PCP Family Medicine
DX: F20.5 Residual schizophrenia (principal); R00.2 Palpitations; I10 Essential (primary) hypertension
CPT/HCPCS: 71045; 80053; 85025; 93005; 99285

== ENCOUNTER 2022-10-31 08:43 | Outpatient (CLI) | payer MEDICARE, SELFPAY ==
--- NOTE | 2022-10-31 09:00 | CT_ITS ---
WS: [id number] CT CHEST WITH INTRAVENOUS CONTRAST HISTORY: new lesion in left lower lobe, history of bladder cancer. TECHNIQUE: Contiguous 5 mm axial imaging performed on the thorax. Coronal and sagittal reformats are submitted. All CT scans at [facility] use at least one of these dose optimization techniques: automated exposure control; mA and/or kV adjustment per patient size (includes targeted exams where dose is matched to clinical indication); or iterative reconstruction. CONTRAST: Omnipaque 350; 100 mL IV. DLP: 286.74 mGy.cm COMPARISON: Prior chest radiograph 06/22/2022. Lungs and central airway: Hyperexpansion with moderate centrilobular emphysema. Benign granuloma in t he lung bases. No solid mass identified. No pneumonia. Pleura: Normal. No pleural effusion. Heart and pericardium: Normal size heart with no pericardial effusion. Mediastinum and kim: No mediastinum or hilar adenopathy. Vessels: Mild atherosclerosis aorta. No aneurysm. Normal size pulmonary artery. LEFT vertebral artery arises directly from the aorta. Chest wall and lower neck: No soft tissue masses. Upper abdomen: There is a small noncalcified plaque at the origin of the superior mesenteric artery a nd the celiac axis and the renal arteries. Slightly greater plaque identified involving the LEFT almita l artery. Osseous structures: No destructive process. CT/CT chest w con* [id number] IMPRESSION: 1. No pulmonary mass or pneumonia is identified. 2. Moderate chronic centrilobular emphysema. 3. Atherosclerotic plaque involving the mesenteric arteries and the renal hussain jessica. Greater stenosis LEFT renal artery.
[2022-10-31] MEDS: iohexol 350 mg/mL 500 mL Btl (per mL) IV (09:06)
[2022-10-31 09:08] LABS: Blood Urea Nitrogen 8 mg/dL (8-23)
== END 2022-10-31 08:44 | disposition home or self-care (01) ==
LOC: RAD 08:43
PROVIDERS: PCP Family Medicine; Visit Provider Family Medicine
DX: R91.8 Other nonspecific abnormal finding of lung field (principal)
CPT/HCPCS: 71260; 82565; 84520; Q9967

== ENCOUNTER → 2022-11-29 10:55 | Outpatient (BNVA) | payer MEDICARE, SELFPAY | PROVIDERS: PCP Family Medicine; Visit Provider Internal Medicine | DX: I73.9 Peripheral vascular disease, unspecified (principal) | CPT/HCPCS: 80048; 85025; 85610 ==

== ENCOUNTER 2022-12-04 06:58 | Outpatient (CLI) | payer MEDICARE, SELFPAY ==
[2022-12-04] VITALS (72 sets, daily range): BP systolic 119–158; BP diastolic 65–84; PULSE 56–103; RESP 14–36; TEMP 36.8–37.1; O2SAT 82–99; BMI 21.6
--- NOTE | 2022-12-04 07:30 | XACV_ITS ---
Ht: 180 cm Wt: 70 kg BSA: 1.87 m2 Gender: Male : 1955 Any Known Allergies: Other Exam Priority: Routine Procedure(s): Procedure Description: Diagnostic procedure Procedure Description: Aortogram Procedure Description: Peripheral Cath Diagnostic Procedure Procedure Description: Abdominal aortic angiography Procedure Description: Lower extremities' angiography Abdominal Diagnostic Findings Patient has abdominal aortic aneurysm. Lower Extremity Diagnostic Findings INDICATION: 68-year-old man with past medical history of smoking and hypertension was referred for evaluation of peripheral artery disease. According to patient he has been having severe lifestyle-limiting claudication. He has difficulty walking to the mailbox and has to rest. Pain becomes severe. He had CTA with run off done yesterday. It showed moderate to severe stenosis of bilateral iliac arteries. Plan for peripheral angiogram with possible percutanoeus intervention. Right lower extremity findings: Right common iliac artery: Severe, calcified 95% stenosis. Right external iliac artery: Patent. Right common femoral artery: Mild to moderate 20 to 30% stenosis. Right distal SFA: Total occlusion. Reconstitution of distal popliteal artery at bifurcation of anterior tibial and TP segment. Three-vessel runoff to the foot.. Left lower extremity findings: Left common iliac artery: Patent. Left external iliac artery: Patent. Left common femoral artery: Total occlusion. Left superficial femoral artery: Below common femoral artery, imaging is of limited quality however appears profunda artery is patent and SFA is occluded. On left lower extremity, below the knee imaging not possible because of poor opacification of vessels.. Conclusions Severe bilateral peripheral artery stenosis. Recommendations Given very extensive PAD, we will refer to vascular surgery for further discussion regarding possible revascularization options vs medical therapy. Pressures Phase:Rest AO : 135 / 64 ( 93 ) @ 12:42:00 PM 115 / 71 ( 92 ) @ 12:43:00 PM Hemodynamic Data Phase:Rest AO : 135.0 / 64.0 ( 93.0 ) @ 12:42:00 PM 115.0 / 71.0 ( 92.0 ) @ 12:43:00 PM Clinical Evaluation EBL: 5mL-10mL Procedural Details Procedure Consent Obtained. Pre-Procedure Time Out. Identified patient by full name and date of as verbalized by the patient/guarantor. Does the consent match the physician's order: Yes. Accurate & Complete Informed Consent: Yes. Inpatient/Outpatient History & Physical on Chart: Yes. If H&P is completed, is and addenduem needed: No; If yes, is the addendum complete: N/A. Visualize and Verify Site with Patient/Guarantor: N/A. Relevant Radiology Images available: N/A. Pre-op teaching completed and patient verbalized understanding. The risks, benefits, and alternatives of sedation and/or procedure were discussed by physician. The patient agrees to continue. Procedure started. Correct patient, site and procedure confirmed by cath team. PERRLA. Strong, equal hand photographer news bilaterally. Lungs clear x 5 lobes. Physician arrived. IV Site on Arrival: 20 gauge in the left anticubital. IV Fluids: 0.9% NaCl at KVO. 0 mL infused prior to quality assurance lab technician. Pre Procedural Pulses: bilateral dorsalis pedis was Doppled. Pre Procedural Pulses: bilateral posterior tibial was Doppled. Oxygen started at 2liters/min via nasal canula. bilateral groins was prepped with chloroprep then draped in the usual sterile fashion. Baseline sample Acquired. HR: 76 BPM. Physician scrubbed in. Immediate Pre-Procedure Time Out. Correct Patient: Yes; Correct Procedure: Yes; Correct Site: Yes; Correct Patient Position: Yes; Correct Supplies: Yes; Dried Flammable Prep: Yes; Blood Products Available: N/A;. Lidocaine 1% infiltrated to the right groin. Arterial access obtained with micropuncture set. Hand injection through the sheath. Glidewire inserted. Glidewire out. Unable to advance catheters using femoral approach due to calcification. Physician moving to radial approach. Lidocaine 1% infiltrated to the right radial. Arterial access obtained. A 5Fr 125 cm Angled PIG catheter in over wire. Catheter removed over the exchange wire. A 5 grenadian JR4 catheter in over wire. Wire out. Hand injection performed. Wire inserted. Wire out. Hand injection performed. Glidewire inserted. A 5 grenadian 125 cmAngled Pig catheter in over glide wire. Aortagram 10 ml for total of 30 ml performed. Catheter out. A 5 grenadian IM catheter in over wire. Exchange wire. Glidewire inserted. IM catheter out over glidewire. A 5 grenadian Angled Pig catheter in over wire. Glidewire out. Abdominal aortogram performed in AP @ 10 mL/sec for a total of 30 mL. Left Leg runoff 10 ml for total of 30 ml. Catheter out. Wire out. Right leg runoff through the sheath. Physician scrubbed out. A TR Band was successful obtaining hemostatsis at the Right Radial artery insertion site. A Suture was successful obtaining hemostatsis at the Right Femoral artery insertion site. TR band placed. Hemostasis obtained. Sheath(s) sutured into position with 2-0 silk and sterile 4x4's and Op-site applied over the site. No oozing or signs and symptoms of hematoma noted. Arterial sheath flushed and connected to tranducer and pressure bag with heparinized saline. Post Procedure: Pulses reassessed and unchanged. PERRLA. Strong, equal hand photographer news bilaterally. No VTE prophylaxis required. Contrast type used: Visipaque 320 mgI/mL, 100 mL bottle. Post-op diagnosis: severe bilateral PAD. Complications: none. Estimated blood loss: 5mL-10mL. Responsiveness - Normal response to verbal stimuli; alert and oriented, PERRLA. Airway - Unaffected, no intervention required; spontaneous ventilation. Circulation: W/N/L, pulses unchanged. Nausea/Vomiting: No. Procedure completed. Patient transferred by bed to 1st floor. Vital chart was stopped. Access Site Site: Right Femoral artery Sheath Size: 6 Fr Hemostasis Method: Suture Hemostasis Success: Successful Site: Right Radial artery Sheath Size: 6 Fr Hemostasis Method: TR Band Hemostasis Success: Successful Procedure Medications Start: 10:56 AM Stop: 10:56 AM Medication: Versed Amount: 1 mg Route: I.V. Start: 10:56 AM Stop: 10:56 AM Medication: Fentanyl Amount: 25 mcg Route: I.V. Start: 11:00 AM Stop: 11:00 AM Medication: Versed Amount: 1 mg Route: I.V. Start: 11:04 AM Stop: 11:04 AM Medication: Fentanyl Amount: 25 mcg Route: I.V. Start: 11:15 AM Stop: 11:15 AM Medication: Versed Amount: 1 mg Route: I.V. Start: 11:17 AM Stop: 11:17 AM Medication: Nitrogylcerin Amount: 200 mcg Route: I.A. Start: 11:20 AM Stop: 11:20 AM Medication: Heparin Amount: 3000 units Route: I.V. Start: 11:30 AM Stop: 11:30 AM Medication: Versed Amount: 0.5 mg Route: I.V. Start: 11:31 AM Stop: 11:31 AM Medication: Heparin Amount: 1000 units Route: I.V. Start: 11:38 AM Stop: 11:38 AM Medication: Versed Amount: 0.5 mg Route: I.V. Start: 11:50 AM Stop: 11:50 AM Medication: Fentanyl Amount: 25 mcg Route: I.V. I, the attending physician, have reviewed and verified all procedure medications. Yes, all medications given per verbal order History/Risk Factors Hypertension: No Dyslipidemia: No Peripheral Arterial Disease (PAD): Yes Myocardial Infarction (MN): No Obesity: No Renal Disease: No Tobacco Use: Current/Recent(w/in 1 year) Prior Interventions PCI: No CABG: No Valve Surgery: No Report Signatures Finalized by Michoacano Mendez MD on 12/12/2022 09:38 AM
[2022-12-04] MEDS: diphenhydrAMINE 50 mg Capsule PO (07:58)
--- NOTE | 2022-12-04 10:48 | W.PM.OPSFHP ---
Same Day Surgery H&P Indication for Procedure/HPI DATE OF PROCEDURE: December 04, 2022 CHIEF COMPLAINT/INDICATIONFOR SURGICAL PROCEDURE: Lifestyle limiting claudication PREOP DIAGNOSIS: Lifestyle limiting claudication PLANNED PROCEDURE: Operation Date: 12/04/22 08:30 Proposed Procedures p Peripheral Angiogram 82354,I73.9(Not Applicable) - Michoacano Mendez M.D 67-year-old man with past medical history of smoking and hypertension was referred for evaluation of peripheral artery disease. According to patient he has been having severe lifestyle-limiting claudication. He has difficulty walking to the mailbox and has to rest. Pain becomes severe. He had CTA with run off done yesterday. It showed moderate to severe stenosis of bilateral iliac arteries. Plan for peripheral angiogram with possible percutanoeus intervention. Medications/Allergies* Home Medications Medication Instructions Recorded Confirmed Type triamcinolone acetonide 0.1 % 1 applic topical DAILY 11/28/22 12/03/22 History topical cream Allergies/Adverse Reactions Allergy/AdvReac Type Severity Reaction Status Date / Time Sulfa (Sulfonamide Allergy Unknown Verified 09/27/22 12:36 Antibiotics) trazodone Allergy Unknown Verified 09/27/22 12:36 Current Medications: Generic Name Dose Route Start Last Admin Trade Name Freq PRN Reason Stop Dose Admin Sodium Chloride 1,000 mls @ 50 mls/hr 12/04/22 07:30 12/04/22 07:59 Sodium Chloride 0.9% IV 12/05/22 03:29 Not Given .Q20H ONE Pertinent History/Comorbid Conditions* Medical History (Updated 07/26/22 @ 11:42 by Connie Aviles [facility] Alcohol dependence, in remission Aortic aneurysm Last looked at on 03/05 - 3.1 cm Bladder cancer COPD (chronic obstructive pulmonary disease) Erectile dysfunction External otitis of left ear On combination antipsychotic drug therapy Psychiatric care Residual schizophrenia Tobacco use disorder Surgical History (Updated 11/30/20 @ 15:02 by Lula Torres DO) S/P appendectomy S/P TURP Family History (Updated 11/25/19 @ 14:49 by Monika Nuno LPN) Diabetes Cancer Social History Smoking and tobacco status: current every day smoker cigarettes Packs smoked per day: 2 Smoking risk assessment/counseling performed?: Yes Tobacco counseling given: counseling >3 minutes Alcohol intake: former Pertinent Exam Findings alert, oriented x 3, clear to auscultation bilaterally and regular rate & rhythm Conscious Sedation Assessment PATIENT ASSESSED PRIOR TO SEDATION, WITH NO CHANGE NOTED: Yes AIRWAY EVAL/ANESTHESIA PLAN: normal airway, see other exam findings, ASA III, Local Anesthesia, Risks, benefits & alternatives of sedation and/or procedure discussed and Patient agrees to continue as planned ADDITIONAL INFORMATION: Moderate sedation Recommendations Surgery/Procedure today (Peripheral angiogram with possible intervention) Coding Level of Care Code Acute Code for [facility] Darrel
[2022-12-04 14:47] LABS: Partial Thromboplastin Time 33.6 SECONDS (23.9-36.7)
--- NOTE | 2022-12-04 19:48 | PC.NURSE ---
TR band removal 1415 - 2ml. 13 left 1430 - 2ml. 11ml left 1445 - 3ml. 8ml left 1450 - 3 ml. 5ml left 1455 - 3ml . 2 ml left 1500 - 2ml. 0 left 1517 - TR band removed completely Sheath pulled by DARELL Victoria at 1513, pressure held till 1543 official out time. per MD Vanessa bedrest for 4 hrs and observe for 2 hr then free to discharge. Patient agreeable to discharge and called brother to arrange time. home medication approved by MD mera NOV. Bedrest end is 1942. DARELL Williamson made aware during shift report.
--- NOTE | 2022-12-04 19:50 | PC.NURSE ---
Bedrest completeted at 19:40. Patient was assisted OOB. Right groin site assessed prior to and after patient got out of bed. Right groin site is soft, no hematoma present, no bruising noted. Right pedal pulses palpable. Right wrist sign also benign, site is soft and no bruising or hematoma noted.
--- NOTE | 2022-12-04 21:45 | PC.NURSE ---
Patient discharged, transported out to [facility] vehicle via wheelchair. IV removed prior to discharge. Right groin and right wrist sites assessed prior to discharge and are benign, soft, and no hematoma present.
== END 2022-12-04 21:40 | disposition home or self-care (01) ==
LOC: CCL 07:00 → CSU 11:32
PROVIDERS: PCP Family Medicine; Visit Provider Internal Medicine
DX: I65.23 Occlusion and stenosis of bilateral carotid arteries (principal); I10 Essential (primary) hypertension; Z85.51 Personal history of malignant neoplasm of bladder; F17.210 Nicotine dependence, cigarettes, uncomplicated
CPT/HCPCS: 36415; 75625; 75716; 85730; 96361; 96365; 99152; 99153; C1769; C1887; C1894; J1644; J2250; J3010; J3490; J7030; Q0163; Q9967

== ENCOUNTER → 2022-12-06 10:44 | Outpatient (BNVA) | payer MEDICARE, SELFPAY | PROVIDERS: PCP Family Medicine; Visit Provider Nurse Practitioner | DX: F20.5 Residual schizophrenia (principal); F17.200 Nicotine dependence, unspecified, uncomplicated; Z79.899 Other long term (current) drug therapy | CPT/HCPCS: 80061; 83036 ==

== ENCOUNTER → 2022-12-20 09:31 | Outpatient (BNVA) | payer MEDICARE, SELFPAY | PROVIDERS: PCP Family Medicine; Visit Provider Nurse Practitioner Family | DX: I73.9 Peripheral vascular disease, unspecified (principal) | CPT/HCPCS: 99213 ==

== ENCOUNTER → 2023-02-21 11:37 | Outpatient (BNVA) | payer MEDICARE, SELFPAY | PROVIDERS: PCP Family Medicine; Visit Provider Internal Medicine | DX: I73.9 Peripheral vascular disease, unspecified (principal); I10 Essential (primary) hypertension; F17.210 Nicotine dependence, cigarettes, uncomplicated | CPT/HCPCS: 99214 ==

== ENCOUNTER → 2023-03-28 11:51 | Outpatient (BNVA) | payer MEDICARE, SELFPAY | PROVIDERS: PCP Family Medicine; Visit Provider Family Medicine | DX: J44.9 Chronic obstructive pulmonary disease, unspecified (principal); Z01.818 Encounter for other preprocedural examination | CPT/HCPCS: 80053; 85025 ==

== ENCOUNTER 2023-05-15 13:17 | Inpatient (IN) | payer MEDICARE, SELFPAY ==
[2023-05-15] VITALS (7 sets, daily range): BP systolic 89–127; BP diastolic 56–78; PULSE 76–102; RESP 15–18; TEMP 36.3–37.3; O2SAT 90–94; BMI 22.3
--- NOTE | 2023-05-15 13:58 | ED_ITS ---
HPI - Fall General: Chief Complaint: Fall Stated Complaint: fall Time Seen by Provider: 05/15/23 13:52 Source: patient Mode of arrival: wheelchair Limitations: no limitations History of Present Illness: Patient is a 67-year-old male with history of COPD, HTN, and schizoaffective disorder who presents to the emergency department complaining of left hip pain status post fall today. Patient states he was getting out of a bathtub and lost his footing which caused him to slip and fall. He reports hitting his left hip on the ground, and reports pain associated with this. However, he states he has not been ambulatory at any point since the fall. He denies any distal sensory changes or other injuries. He did not hit his head or lose consciousness, and denies any preceding symptoms including chest pain, dizziness, or palpitations. He has no prior injuries to that hip and has never had surgery there. The pain is reported as an 8/10, though he denies pain medications. Patient further denies any chest pain, shortness of breath, any other symptoms at this time. MD complaint: fall Onset (ago): hour(s) Fall from: standing Fall witnessed: no Place fall occurred: home Loss of consciousness: None Prolonged down time: yes Symptoms prior to fall: none Context: tripped/slipped Location of injury - extremities: Left: thigh Severity: severe Severity scale (1-10): 8 Associated symptoms-after fall: Reports no associated symptoms and difficulty walking (cannot walk due to L hip pain/injury); Denies abdominal pain, chest pain, headache(s), lightheadedness or neck pain Review of Systems 2 Const: Reports: other (fall); Denies: fever(s) or chills Eyes: Denies: change in vision or blurry vision Card: Denies: chest pain, palpitations, irregular heart rhythm, lightheadedness, syncope or dyspnea on exertion Resp: Denies: dyspnea, productive cough or pain on inspiration GI: Denies: abdominal pain, nausea, vomiting, heartburn or diarrhea : Denies: difficulty urinating or dysuria Musc: Reports: joint pain (Left hip) and limited range of motion; Denies: neck pain, back pain, extremity pain, extremity swelling, joint redness or joint warmth Skin/Breast: Denies: rash Neuro: Reports: difficulty walking (cannot walk due to L hip pain/injury); Denies: headache(s), numbness in extremities, weakness in extremities or sensory changes PFSH ED PFSH: Medical History Alcohol dependence, in remission Aortic aneurysm Last looked at on 03/05 - 3.1 cm Bladder cancer COPD (chronic obstructive pulmonary disease) Erectile dysfunction External otitis of left ear On combination antipsychotic drug therapy Psychiatric care Residual schizophrenia Tobacco use disorder Surgical History S/P appendectomy S/P TURP Family History Other Cancer Diabetes Social History Smoking and tobacco status: current every day smoker cigarettes Packs smoked per day: 2 Smoking risk assessment/counseling performed?: Yes Tobacco counseling given: counseling >3 minutes Alcohol intake: former Substance/Drug Use: former Date of last use: THC & SPEED Physical Exam Const: COMMON NORMALS: no acute distress, average body habitus, patient oriented x3, no limitations, healthy appearing, alert and well nourished GENERAL APPEARANCE: cooperative ORIENTATION/CONSCIOUSNESS: Yes awake, Yes oriented to person, Yes oriented to place and Yes oriented to time HENMT: COMMON NORMALS: normocephalic, atraumatic and TM's normal bilaterally HEAD & SCALP: normal to inspection, normocephalic and atraumatic; no Vickers's sign, no hematoma and no raccoon eyes FACE & SINUS: normal facial exam TYMPANIC MEMBRANE: TM's normal bilaterally MOUTH: other (no intraoral injuries noted) Eye: COMMON NORMALS: Equal, round and reactive pupils present and EOMs intact bilaterally GENERAL EYE: appearance normal, both eyes and all related structures and normal light reflex PUPIL: Yes Equal, round and reactive pupils present DIRECT OPHTHALMOSCOPY: Yes normal light reflex Neck/C-Spine: COMMON NORMALS: full ROM GENERAL: Yes normal visual inspection CERVICAL SPINE: Yes cervical ROM normal, No pain with cervical ROM, No Cervical spine tenderness, No step off deformity and No Paracervical muscle tenderness Chest: COMMONS NORMALS: normal inspection of the chest and normal palpation of entire chest wall Resp: COMMON NORMALS: normal respiratory effort and clear to auscultation bilaterally AUSCULTATION: clear to auscultation bilaterally Cardio: COMMON NORMALS: regular rate and regular rhythm RATE: regular rate RHYTHM: regular rhythm GI: COMMON NORMALS: Normal to inspection, nondistended, normoactive bowel sounds present, Soft to palpation, non-tender, No hepatosplenomegaly present and no masses INSPECTION: Yes normal to inspection and No abdominal wall ecchymosis AUSCULTATION: Yes normoactive bowel sounds PALPATION: Yes Soft to palpation and Yes No hepatosplenomegaly present Back/Pelvis: COMMON NORMALS: thoracic and lumbar spine normal to inspection, no thoracic nor lumbar tenderness and thoraco-lumbar ROM normal Extremity: COMMON NORMALS: normal to inspection, capillary refill normal, no clubbing, cyanosis or edema and no pedal edema GENERAL: Yes normal exam except as noted LEFT LOWER EXTREMITY: Yes hip joint Left hip: Yes inspection (The left leg is externally rotated and minimally shortened), Yes palpation (Tenderness to palpation over the left lateral hip), Yes ROM (Unable to move leg actively or passively due to pain) and Yes neurovascular exam (No distal neurovascular deficits) Neuro: GILBERT COMA SCALE: document GCS findings [place] coma scale eye opening: Spontaneous [place] coma scale verbal response: Orientated Gilbert coma scale motor response: Obey commands Gilbert coma scale total score: 15 COMMON NORMALS: patient oriented x3, CN's II-XII intact bilaterally, moves all extremities, no focal motor deficits and no sensory deficits noted SENSORIUM/ ORIENTATION: Yes alert, Yes oriented to person, Yes oriented to place and Yes oriented to time SPEECH: speech normal GAIT: Yes Unable to assess gait Skin: COMMON NORMALS: no rashes or lesions noted GENERAL SKIN EXAM: no rashes or lesions noted TRAUMA: no lacerations or abrasions Course Consultations: Consultation #1: Dr. Arechiga-will perform surgery later this evening Consultation #2: Dr. Osman-will accept hospitalization Vital Signs: Vital signs: Vital Signs Temperature 97.4 F L 05/15/23 13:27 Pulse Rate 80 05/15/23 15:51 Respiratory Rate 16 05/15/23 15:51 Blood Pressure 127/78 05/15/23 15:51 Pulse Oximetry 93 05/15/23 15:51 Oxygen Delivery Me thod Room Air 05/15/23 15:51 MDM - Fall Medical Decision Making Patient is a slip and fall in his bathtub earlier this morning. He has a nondisplaced intertrochanteric fracture of his left hip. Spoke to Dr. Arechiga who will perform surgical repair later this evening. Patient states he has not had anything to eat or drink since early this morning. He is not on anticoagu lation. PMH significant for COPD, HTN, schizoaffective disorder. I spoke to Dr. Osman who will admit the patient. Dr. Anthony will write admit orders. Lab Data 05/15/23 14:09 05/15/23 14:09 Laboratory Results WBC 15.07 10^3/uL (3.29-11.43) H 05/15/23 14:09 RBC 3.82 10^6/uL (3.85-5.65) L 05/15/23 14:09 Hgb 12.80 g/dL (11.27-16.99) 05/15/23 14:09 Hct 36.5 % (37-53) L 05/15/23 14:09 MCV 95.5 fl (82-101) 05/15/23 14:09 MCH 33.5 pg (27-33) H 05/15/23 14:09 MCHC 35.1 g/dL (30-55) 05/15/23 14:09 RDW 12.8 % (12.1-15.1) 05/15/23 14:09 Plt Count 189 10^3/cmm (157-399) 05/15/23 14:09 MPV 8.2 fL (7.4-10.4) 05/15/23 14:09 Neut % (Auto) 89.3 % 05/15/23 14:09 Lymph % (Auto) 6.1 % 05/15/23 14:09 Colbert % (Auto) 3.5 % 05/15/23 14:09 Eos % (Auto) 0.1 % 05/15/23 14:09 Baso % (Auto) 0.3 % 05/15/23 14:09 Neut # (Auto) 13.46 10^3/uL (1.8-7.7) H 05/15/23 14:09 Lymph # (Auto) 0.9 10^3/uL (0.8-4.8) 05/15/23 14:09 Colbert # (Auto) 0.5 10^3/uL (0.2-0.9) 05/15/23 14:09 Eos # (Auto) 0.0 10^3/uL (0.0-0.8) 05/15/23 14:09 Baso # (Auto) 0.0 10^3/uL (0.0-0.1) 05/15/23 14:09 Nucleated RBC % (auto) 0 % 05/15/23 14:09 Nucleated RBCs # 0.0 /100WBC 05/15/23 14:09 Sodium 130 mmol/L (136-145) L 05/15/23 14:09 Potassium 4.4 mmol/L (3.5-5.1) 05/15/23 14:09 Chloride 95 mmol/L (98-107) L 05/15/23 14:09 Carbon Dioxide 23 mmol/L (22-29) 05/15/23 14:09 Anion Gap 16.4 (5-19) 05/15/23 14:09 BUN 15 mg/dL (8-23) 05/15/23 14:09 Creatinine 0.9 mg/dL (0.7-1.2) 05/15/23 14:09 GFR Calculation 84.7 mL/min (90-130) L 05/15/23 14:09 Glucose 146 mg/dL (65-115) H 05/15/23 14:09 Calculated Osmolality 273 mOsm/kg (285-295) L 05/15/23 14:09 Calcium 8.9 mg/dL (8.5-10.5) 05/15/23 14:09 Total Bilirubin 0.3 mg/dL (0.15-1.2) 05/15/23 14:09 AST 14 U/L (0-40) 05/15/23 14:09 ALT 9 U/L (0-41) 05/15/23 14:09 Alkaline Phosphatase 78 U/L (40-130) 05/15/23 14:09 Creatine Kinase 133 U/L (39-308) 05/15/23 14:09 Total Protein 6.9 g/dL (6.6-8.7) 05/15/23 14:09 Albumin 4.6 g/dL (3.5-5.2) 05/15/23 14:09 Globulin 2.3 g/dL (1.3-4.6) 05/15/23 14:09 EKG Data EKG 1: I personally reviewed and interpreted this EKG as follows: EKG interpretation date: 05/15/23 EKG interpretation time: 14:18 Prior EKG tracings: available for review Interpretation: 1418: Normal sinus rhythm. Rate 69. Left axis deviation. No acute ST segment changes. No change from previous. Discharge Plan Discharge Patient Disposition: Admitted As Inpatient Clinical Impression: Closed intertrochanteric fracture Qualifiers: Encounter type: initial encounter Fracture alignment: nondisplaced Laterality: left Qualified Code(s): S72.145A - Nondisplaced intertrochanteric fracture of left femur, initial encounter for closed fracture Condition: Stable Coding Level of Care Code ED Woodenware Assembler for Beth Rojo
--- NOTE | 2023-05-15 14:06 | XR_ITS ---
WS: [id number] Exam: XR hip LT 2-3V wo/w pel* [id number] Date/Time of Exam: 05/15/2023 2:06 PM Reason For Exam: fall/trauma; one view pelvis too please There is a nondisplaced intertrochanteric fracture of the LEFT hip. No other acute fractures are iden tified. Old bilateral pelvic fractures are noted. 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 IMPRESSION: 1. Acute nondisplaced intertrochanteric fracture of the LEFT hip. 2. Moderately advanced DJD. Old bilateral pelvic fractures.
--- NOTE | 2023-05-15 14:07 | XR_ITS ---
WS: [id number] Exam: XR chest 1V portable [id number] Date/Time of Exam: 05/15/2023 2:07 PM Reason For Exam: fall Comparison 06/22/2022. The lungs are hyperinflated and clear. Unremarkable cardiomediastinal silhouette. No pleural effusion s. Old RIGHT clavicle fracture. IMPRESSION: 1. Pulmonary hyperinflation. No acute process identified.
--- NOTE | 2023-05-15 14:07 | ECG_ITS ---
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 Measurements Intervals [place] Rate: 69 P: 28 TX: 203 QRS: -49 QRSD: 81 T: 43 QT: 369 QTc: 397 Interpretive Statements SINUS RHYTHM LEFT AXIS DEVIATION [QRS AXIS < -30] Compared to ECG 06/22/2022 13:59:02 First degree AV block no longer present Electronically Signed On 05-15-2023 17:15:13 CDT by Sara Paula M.D. [email or web address] [facility] [id number]
[2023-05-15 14:48] LABS: Basophils % 0.3 %; Eosinophils % 0.1 %; Hematocrit 36.5 % (37-53); Lymphocytes # 0.9 10^3/uL (0.8-4.8); Lymphocytes % 6.1 %; Mean Corpuscular HGB Conc 35.1 g/dL (30-55); Mean Corpuscular Hemoglobin 33.5 pg (27-33); Mean Corpuscular Volume 95.5 fl (82-101); Mean Platelet Volume 8.2 fL (7.4-10.4); Monocytes # 0.5 10^3/uL (0.2-0.9); Monocytes % 3.5 %; Neutrophils # 13.46 10^3/uL (1.8-7.7); Neutrophils % 89.3 %; Nucleated Red Blood Cells % 0 %; Platelet Count 189 10^3/cmm (157-399); Red Blood Count 3.82 10^6/uL (3.85-5.65); Red Cell Distribution Width 12.8 % (12.1-15.1); White Blood Count 15.07 10^3/uL (3.29-11.43)
[2023-05-15 15:14] LABS: Alanine Aminotransferase 9 U/L (0-41); Albumin Level 4.6 g/dL (3.5-5.2); Alkaline Phosphatase 78 U/L (40-130); Anion Gap 16.4 (5-19); Aspartate Amino Transferase 14 U/L (0-40); Blood Urea Nitrogen 15 mg/dL (8-23); Calcium 8.9 mg/dL (8.5-10.5); Carbon Dioxide 23 mmol/L (22-29); Chloride 95 mmol/L (98-107); Creatine Phosphokinase 133 U/L (39-308); Globulin 2.3 g/dL (1.3-4.6); Glomerular Filtration Rate 84.7 mL/min (90-130); Glucose 146 mg/dL (65-115); Osmolality Calculated 273 mOsm/kg (285-295); Potassium 4.4 mmol/L (3.5-5.1); Sodium 130 mmol/L (136-145); Total Bilirubin 0.3 mg/dL (0.15-1.2); Total Protein 6.9 g/dL (6.6-8.7)
[2023-05-15 16:20] LABS: Urine Appearance Clear (CLEAR); Urine Color Yellow (Yellow)
[2023-05-15 16:21] LABS: Add Urine Microscopic? YES; Bilirubin Urine Neg (Negative); Blood Urine 3+ (Negative); Glucose Urine UA Norm (Normal); Ketones Urine Negative (Negative); Leukocyte Esterase Urine Negative (Negative); Nitrate Urine Negative (Negative); Protein Urine Neg (Negative); Urobilinogen Urine Norm (Negative); pH Urine 5 (5-7)
[2023-05-15 16:22] LABS: Mucus Urine 1+ /hpf; Squamous Epithelial Cell Urine 0-4 /hpf (0-5); WBC Urine 0-4 /hpf (0-5)
[2023-05-15 16:23] LABS: Add Urine Culture? No; Hyaline Casts Urine 0-4 /lpf
--- NOTE | 2023-05-15 16:54 | ECG_ITS ---
[facility] Test Date: 2023-05-15 Pat Name: Al Han Department: Room: 271 Gender: Male Community Services Manager: : 1955 Requested By: iNck Osman Order Number: [id number] Sinai MD: Michoacano Mendez M.D. Measurements Intervals [place] Rate: 83 P: -5 OR: 197 QRS: -59 QRSD: 82 T: 40 QT: 349 QTc: 412 Interpretive Statements SINUS RHYTHM LEFT AXIS DEVIATION [QRS AXIS < -30] Compared to ECG 05/15/2023 14:17:12 No significant changes Electronically Signed On 05-16-2023 6:49:23 CDT by Michoacano Mendez M.D. [id number]
--- NOTE | 2023-05-15 17:00 | PM.HP ---
Providers/Chief Complaint Admitting Physician: Nick Osman MD Primary Care Provider: Lula Torres DO Chief Complaint: fall History of Present Illness Al Han is a 67 year old male with a past medical history of schizoaffective disorder, peripheral vascular disease, smoking history, hypertension, he is supposed to have a bypass in [place] for his peripheral vascular disease as a peripheral angiogram showed severe extensive bilateral peripheral artery disease, with history of COPD history of aortic aneurysm, history of bladder cancer, who presents to [facility] for a fall and left hip pain patient tells me that he was getting out of the bathtub, and he lost his footing, causing him to slip and fall, hitting his left hip on the ground, denies any significant head trauma, no nausea, no vomiting, no loss of consciousness, no preceding chest pain, no palpitations, no dizziness, he was found to have a nondisplaced intertrochanteric fracture of his left hip, Dr. Arechiga has been consulted, initially there is plans on doing surgery today, but it has been rescheduled to Saturday, hospitalist team was called for medical management Review of Systems Const: Denies: fever(s) Eyes: Denies: change in vision Card: Denies: chest pain Resp: Denies: dyspnea GI: Denies: abdominal pain : Denies: flank pain or difficulty urinating Musc: Reports: joint pain Neuro: Denies: headache(s) Medications/Allergies Home Medications Medication Instructions Recorded Confirmed Last Taken Type amlodipine 5 mg tablet (Norvasc) 5 mg PO BID 90 days #180 tabs 09/27/22 05/15/23 05/15/23 Rx metoprolol tartrate 25 mg tablet 12.5 mg PO BID #90 tabs 09/27/22 05/15/23 05/15/23 Rx triamcinolone acetonide 0.1 % 1 applic topical DAILY PRN Rash 12/20/22 05/15/23 Unknown History topical cream quetiapine 300 mg tablet 300 mg PO .HS #90 tabs 03/06/23 05/15/23 05/14/23 Rx risperidone 1 mg tablet 1 mg PO BID #180 tabs 03/06/23 05/15/23 05/15/23 Rx trihexyphenidyl 2 mg tablet 2 mg PO TID #270 tabs 03/06/23 05/15/23 05/15/23 Rx albuterol sulfate 90 mcg/actuation 2 puff inhalation Q6H PRN 03/28/23 05/15/23 Unknown Rx aerosol inhaler (Ventolin HFA) shortness of breath or wheezing #8.5 grams Allergies Allergy/AdvReac Type Severity Reaction Status Date / Time Sulfa (Sulfonamide Allergy Unknown Verified 05/15/23 13:33 Antibiotics) trazodone Allergy Unknown Verified 05/15/23 13:33 PFSH Acute PFSH: Medical History Alcohol dependence, in remission Aortic aneurysm Last looked at on 03/05 - 3.1 cm Bladder cancer COPD (chronic obstructive pulmonary disease) Erectile dysfunction External otitis of left ear On combination antipsychotic drug therapy Psychiatric care Residual schizophrenia Tobacco use disorder Surgical History S/P appendectomy S/P TURP Family History Other Cancer Diabetes Social History Smoking and tobacco status: current every day smoker cigarettes Packs smoked per day: 2 Smoking risk assessment/counseling performed?: Yes Tobacco counseling given: counseling >3 minutes Alcohol intake: former Substance/Drug Use: former Date of last use: THC & SPEED Vitals/I&O/Wt Last Vital Signs Temp 97.4 F L 05/15/23 13:27 Pulse 80 05/15/23 15:51 Resp 16 05/15/23 15:51 BP 127/78 05/15/23 15:51 Pulse Ox 93 05/15/23 15:51 O2 Del Method Room Air 05/15/23 15:51 Weight last 48 hrs Weight 72.575 kg Physical Exam Const: COMMON NORMALS: no acute distress and patient oriented x3 GENERAL APPEARANCE: cooperative, well kempt and well developed Eye: COMMON NORMALS: Equal, round and reactive pupils present, EOMs intact bilaterally and conjunctivae normal Neck/C-Spine: COMMON NORMALS: no lymphadenopathy Chest: COMMONS NORMALS: normal inspection of the chest Resp: COMMON NORMALS: normal respiratory effort, No retractions, No use of accessory muscles and clear to auscultation bilaterally AUSCULTATION: clear to auscultation bilaterally Cardio: COMMON NORMALS: no JVD, regular rate, regular rhythm, S1 normal heart sound present, S2 normal heart sound present, No murmurs present (Cardio) and Peripheral pulses 2+ throughout RATE: regular rate RHYTHM: regular rhythm HEART SOUNDS: S1 normal heart sound present and S2 normal heart sound present PERIPHERAL PULSES: Peripheral pulses 2+ throughout GI: COMMON NORMALS: Normal to inspection, nondistended, normoactive bowel sounds present, Soft to palpation and non-tender : BLADDER/KIDNEY EXAM: Yes no CVA tenderness Back/Pelvis: COMMON NORMALS: no CVA tenderness Extremity: COMMON NORMALS: no pedal edema NARRATIVE EXTREMITY EXAM: DP and PT pulses palpable bilaterally,, but significantly diminished Neuro: COMMON NORMALS: patient oriented x3 and CN's II-XII intact bilaterally Psych: COMMON NORMALS: mental status grossly normal and Normal thought process present Skin: COMMON NORMALS: turgor normal and no jaundice GENERAL SKIN EXAM: turgor normal Urinary Catheter Management: Burgess: Cath Placed During This Visit: yes Urinary Catheter Date of Insertion: 05/15/23 Urinary Catheter Time of Insertion: 15:52 Data 05/15/23 14:09 05/15/23 14:09 A&P Assessment and plan (1) Closed intertrochanteric fracture: IMPRESSION: 1. Acute nondisplaced intertrochanteric fracture of the LEFT hip. 2. Moderately advanced DJD. Old bilateral pelvic fractures. -Pain control morphine -Lovenox for DVT prophylaxis -Orthopedic service on consult Qualifiers: Encounter type: initial encounter Fracture alignment: nondisplaced Laterality: left Qualified Code(s): S72.145A - Nondisplaced intertrochanteric fracture of left femur, initial encounter for closed fracture (2) Iliac artery stenosis, bilateral: Lower Extremity Diagnostic Findings ? INDICATION: 68-year-old man with past medical history of smoking and hypertension was referred for evaluation of peripheral artery disease. According to patient he has been having severe lifestyle-limiting claudication. He has difficulty walking to the mailbox and has to rest. Pain becomes severe. He had CTA with run off done yesterday. It showed moderate to severe stenosis of bilateral iliac arteries. Plan for peripheral angiogram with possible percutanoeus intervention. ? Right lower extremity findings: Right common iliac artery: Severe, calcified 95% stenosis. Right external iliac artery: Patent. Right common femoral artery: Mild to moderate 20 to 30% stenosis. Right distal SFA: Total occlusion. Reconstitution of distal popliteal artery at bifurcation of anterior tibial and TP segment.? Three-vessel runoff to the foot.. ? Left lower extremity findings: Left common iliac artery: Patent. Left external iliac artery: Patent. Left common femoral artery: Total occlusion. Left superficial femoral artery: Below common femoral artery, imaging is of limited quality however appears profunda artery is patent and SFA is occluded. On left lower extremity, below the knee imaging not possible because of poor opacification of vessels.. Conclusions ? Severe bilateral peripheral artery stenosis. -We will continue to monitor (3) COPD (chronic obstructive pulmonary disease): (4) Benign essential HTN: (5) Nicotine dependence, cigarettes, with unspecified nicotine-induced disorders: Smoking cessation counseling Plan Denies a history of CAD, no history of strokes, no history of DVT no history of PE, does have history of COPD, does have a history of peripheral vascular disease, no plans on any bypass surgery for his peripheral vascular disease Attestations Medical Necessity Statement*: Patient requires hospitalization for fall, left hip fracture, inpatient, greater than 2 midnights Diagnoses Closed intertrochanteric fracture S72.145A Encounter type: initial encounter Fracture alignment: nondisplaced Laterality: left Iliac artery stenosis, bilateral I77.1 COPD (chronic obstructive pulmonary disease) J44.9 Benign essential HTN I10 Nicotine dependence, cigarettes, with unspecified nicotine-induced disorders F17.219
[2023-05-15 17:15] LABS: NT Pro B Type Natriuretic Pept 36 pg/mL (0-125)
[2023-05-15 17:16] LABS: INR 0.97 (0.8-1.2)
[2023-05-15] MEDS: sodium chloride 0.9% 1,000 ML 75 ML IV (18:17)
[2023-05-15] MEDS: amlodipine 5 mg Tablet PO (18:21)
[2023-05-15] MEDS: metoprolol tartrate 25 mg Tablet 12.5 MG PO (18:21)
[2023-05-15] MEDS: risperiDONE 1 mg Tablet PO (18:22)
[2023-05-15] MEDS: enoxaparin 40 mg/0.4 mL Syringe SUBCUT (18:22)
[2023-05-15] MEDS: pantoprazole 40 mg SDV IVP (18:23)
[2023-05-15 18:36] LABS: Troponin(5th) Baseline 7 ng/L (0-15)
[2023-05-15 18:45] LABS: Chol HDL Ratio 3.73 mg/dL (1.0-5.00); Cholesterol 168 mg/dL (0-200); HDL Cholesterol 45 mg/dL (60-100); LDL Cholesterol Calculated 104 mg/dL (50-129); LDL HDL Ratio 2.31 RATIO (0.00-3.22); Thyroid Stimulating Hormone 0.57 uIU/mL (0.27-4.20); Triglycerides 93 mg/dL (0-150)
[2023-05-15 20:10] LABS: Estmated Average Glucose 111; Hemoglobin A1C 5.5 % (4.0-6.0)
[2023-05-15] MEDS: quetiapine 300 mg Tablet PO (20:15)
--- NOTE | 2023-05-15 20:17 | ECG_ITS ---
[facility] Test Date: 2023-05-15 Pat Name: Al Han Department: Room: 271 Gender: Male Nut Feeder: : 1955 Requested By: Nick Osman Order Number: [id number] Sinai MD: Michoacano Mendez M.D. Measurements Intervals [place] Rate: 83 P: 60 FL: 216 QRS: -71 QRSD: 82 T: 54 QT: 343 QTc: 404 Interpretive Statements SINUS RHYTHM WITH FIRST DEGREE AV BLOCK LEFT AXIS DEVIATION [QRS AXIS < -30] Compared to ECG 05/15/2023 17:16:05 First degree AV block now present Electronically Signed On 05-16-2023 6:49:51 CDT by Michoacano Mendez M.D. [email or web address] Biosource Corporation[id number]
[2023-05-15] MEDS: efferdent effervescent 1 EACH DENTAL (20:30)
[2023-05-15 20:37] LABS: Troponin 5 2HR 9.17 ng/L (0-15); Troponin 5 2HR Delta 2.17 ABS# (0-10)
[2023-05-15 23:56] LABS: Troponin 5 6HR 10.41 ng/L (0-15); Troponin 5 6HR Delta 3.41 ng/L (0-12)
[2023-05-16] VITALS (17 sets, daily range): BP systolic 110–125; BP diastolic 61–68; PULSE 72–102; RESP 16–19; TEMP 36.7–37.3; O2SAT 89–91
[2023-05-16] MEDS: morphine 4 mg/mL SDV 1 mL 2 MG IVP ×5 (00:12→22:49)
[2023-05-16] MEDS: sodium chloride 0.9% 1,000 ML 75 ML IV ×2 (05:22→18:41)
[2023-05-16 06:18] LABS: Basophils % 0.4 %; Eosinophils # 0.1 10^3/uL (0.0-0.8); Eosinophils % 1.1 %; Lymphocytes % 27.8 %; Mean Corpuscular HGB Conc 34.4 g/dL (30-55); Mean Corpuscular Hemoglobin 32.6 pg (27-33); Monocytes # 0.6 10^3/uL (0.2-0.9); Monocytes % 8.3 %; Neutrophils # 4.54 10^3/uL (1.8-7.7); Neutrophils % 62.1 %; Nucleated Red Blood Cells % 0 %; Platelet Count 160 10^3/cmm (157-399); Red Blood Count 3.37 10^6/uL (3.85-5.65); White Blood Count 7.31 10^3/uL (3.29-11.43)
[2023-05-16 07:07] LABS: Alanine Aminotransferase 8 U/L (0-41); Albumin Level 3.9 g/dL (3.5-5.2); Alkaline Phosphatase 57 U/L (40-130); Anion Gap 12.1 (5-19); Aspartate Amino Transferase 16 U/L (0-40); Blood Urea Nitrogen 11 mg/dL (8-23); Calcium 8.6 mg/dL (8.5-10.5); Carbon Dioxide 24 mmol/L (22-29); Chloride 102 mmol/L (98-107); Globulin 2.2 g/dL (1.3-4.6); Glomerular Filtration Rate 113.2 mL/min (90-130); Glucose 107 mg/dL (65-115); Osmolality Calculated 278 mOsm/kg (285-295); Phosphorus 3.1 mg/dL (2.5-4.5); Potassium 4.1 mmol/L (3.5-5.1); Sodium 134 mmol/L (136-145); Total Bilirubin 0.4 mg/dL (0.15-1.2); Total Protein 6.1 g/dL (6.6-8.7)
--- NOTE | 2023-05-16 07:58 | PM.CONSULT ---
Providers/Reason For Consult Consulting Physician/Specialty*: Orthopedics Reason for Consult*: Left Hip Pain Attending Physician: Nick Osman MD Primary Care Provider: Lula Torres DO History of Present Illness History of Present Illness Al Han is a 67 year old male presents to [facility] after a fall while getting out of the bathtub. Sustained injury to his left hip felt immediate pain with inability to move without pain was sharp stabbing constant in nature. He denied any significant head trauma loss of consciousness. X-rays confirmed a nondisplaced intertrochanteric fracture of his left hip, orthopedics had been consulted. Patient was evaluated in room 271 with no family present. Patient continued to complain of left hip pain with movement. Denies any neck or back pain. Ranks the pain as 5 out of 10 on the pain scale at rest with pain worsening with movement. Describes spasming pain in the left leg. Currently denies any chest pain, shortness of breath. Review of Systems Const: Denies: fever(s) Eyes: Denies: change in vision Card: Denies: chest pain Resp: Denies: dyspnea GI: Denies: abdominal pain : Denies: flank pain or difficulty urinating Musc: Reports: joint pain Neuro: Denies: headache(s) Medications/Allergies Home Medications Medication Instructions Recorded Confirmed Last Taken Type amlodipine 5 mg tablet (Norvasc) 5 mg PO BID 90 days #180 tabs 09/27/22 05/15/23 05/15/23 Rx metoprolol tartrate 25 mg tablet 12.5 mg PO BID #90 tabs 09/27/22 05/15/23 05/15/23 Rx triamcinolone acetonide 0.1 % 1 applic topical DAILY PRN Rash 12/20/22 05/15/23 Unknown History topical cream quetiapine 300 mg tablet 300 mg PO .HS #90 tabs 03/06/23 05/15/23 05/14/23 Rx risperidone 1 mg tablet 1 mg PO BID #180 tabs 03/06/23 05/15/23 05/15/23 Rx trihexyphenidyl 2 mg tablet 2 mg PO TID #270 tabs 03/06/23 05/15/23 05/15/23 Rx albuterol sulfate 90 mcg/actuation 2 puff inhalation Q6H PRN 03/28/23 05/15/23 Unknown Rx aerosol inhaler (Ventolin HFA) shortness of breath or wheezing #8.5 grams Allergies Allergy/AdvReac Type Severity Reaction Status Date / Time Sulfa (Sulfonamide Allergy Unknown Verified 05/15/23 13:33 Antibiotics) trazodone Allergy Unknown Verified 05/15/23 13:33 Current Medications Generic Name Dose Route Start Last Admin Trade Name Freq PRN Reason Stop Dose Admin Amlodipine Besylate 5 mg 05/15/23 18:00 05/15/23 18:21 Amlodipine 5 Mg Tablet PO 5 mg BID BAILEE Administration Denture Adhesive 1 each 05/15/23 20:23 05/15/23 20:30 Efferdent Effervescent DENTAL 1 each PRN PRN Administration Denture housekeeping cleaner Enoxaparin Sodium 40 mg 05/15/23 18:15 05/15/23 18:22 Enoxaparin 40 Mg/0.4 Ml Syringe SUBCUT 40 mg Q24H BAILEE Administration Sodium Chloride 1,000 mls @ 75 mls/hr 05/15/23 17:40 05/16/23 05:22 Sodium Chloride 0.9% IV 75 mls/hr .[id number] BAILEE Administration Metoprolol Tartrate 12.5 mg 05/15/23 18:00 05/15/23 18:21 Metoprolol Tartrate 25 Mg Tablet PO 12.5 mg BID BAILEE Administration Morphine Sulfate 2 mg 05/15/23 17:40 05/16/23 00:12 Morphine 4 Mg/Ml Sdv 1 Ml IVP 2 mg Q4H PRN Administration SEVERE PAIN Pantoprazole Sodium 40 mg 05/15/23 18:30 05/15/23 18:23 Pantoprazole 40 Mg Sdv IVP 40 mg Q24H BAILEE Administration Quetiapine Fumarate 300 mg 05/15/23 21:00 05/15/23 20:15 Quetiapine 300 Mg Tablet PO 300 mg BEDTIME BAILEE Administration Risperidone 1 mg 05/15/23 18:00 05/15/23 18:22 Risperidone 1 Mg Tablet PO 1 mg BID BAILEE Administration Trihexyphenidyl HCl 2 mg 05/15/23 21:00 05/15/23 20:15 Trihexyphenidyl 2 Mg Tablet PO 2 mg TID BAILEE Administration PFSH Acute PFSH: Medical History Alcohol dependence, in remission Aortic aneurysm Last looked at on 03/05 - 3.1 cm Bladder cancer COPD (chronic obstructive pulmonary disease) Erectile dysfunction External otitis of left ear On combination antipsychotic drug therapy Psychiatric care Residual schizophrenia Tobacco use disorder Surgical History S/P appendectomy S/P TURP Family History Other Cancer Diabetes Social History Smoking and tobacco status: current every day smoker cigarettes Packs smoked per day: 2 Smoking risk assessment/counseling performed?: Yes Tobacco counseling given: counseling >3 minutes Alcohol intake: former Substance/Drug Use: former Date of last use: THC & SPEED Vitals/I&O/Wt Last Vital Signs Temp 99.1 F 05/16/23 03:53 Pulse 86 05/16/23 06:00 Resp 16 05/16/23 03:53 BP 115/62 05/16/23 03:53 Pulse Ox 90 05/16/23 03:53 O2 Del Method Room Air 05/16/23 03:53 05/15/23 05/16/23 05/16/23 22:59 06:59 14:59 Intake Total 250 / 250 831.25 / 1081.25 Output Total 2300 / 2300 950 / 3250 Balance -2050 / -2050 -118.75 / -2168.75 Weight last 48 hrs Weight 160 lb Physical Exam Narrative: Patient is alert and orient x3 has good general appearance normal mood and affect. Tender with palpation over the left hip nontender over the right. Has positive logroll on the left negative on the right. Skin is clear warm feet warm good cap refill. Quadriceps region is supple on the left. Normal station light touch down both lower extremities wiggles all digits can dorsiflex plantarflex both ankles without any problem. Dorsalis pedis and posterior tibial pulses are weak but palpable. Calves are supple no medial thigh tenderness. No palpable pain in the lumbar thoracic or cervical spine full range of motion of both upper extremities full range of motion of the cervical spine. Normal station light touch in both upper extremities does have an abrasion over his left elbow. Wiggles all digits radial pulses are palpable. HENMT: COMMON NORMALS: normocephalic and atraumatic HEAD & SCALP: normocephalic and atraumatic Resp: COMMON NORMALS: normal respiratory effort Cardio: COMMON NORMALS: regular rate and regular rhythm RATE: regular rate RHYTHM: regular rhythm GI: COMMON NORMALS: Soft to palpation and non-tender PALPATION: Yes Soft to palpation : COMMON NORMALS: Yes no CVA tenderness BLADDER/KIDNEY EXAM: Yes no CVA tenderness Back/Pelvis: COMMON NORMALS: no CVA tenderness Psych: COMMON NORMALS: mental status grossly normal and cooperative Urinary Catheter Management: Burgess: Cath Placed During This Visit: yes Reason for Continuing Indwelling Catheter: Perioperative Use in Selected Surgeries Urinary Catheter Date of Insertion: 05/15/23 Urinary Catheter Time of Insertion: 15:52 Data 05/16/23 06:00 05/16/23 06:00 A&P Assessment and plan (1) Closed intertrochanteric fracture: Discussed the fracture with him. Discussed treatment options and involve a trochanteric femoral nail to the left hip. Explained the risks benefits of the procedure which include but not limited to bleeding infection nerve damage continued hip pain need for surgery reaction anesthesia. And he would like to proceed with surgical intervention. Also discussed with him the degenerative nature of both hips which may continue to have arthritic pain following surgery. Also discussed at length with him smoking cessation and the concerns of bone and wound healing with nicotine use. I will proceed with open reduction internal fixation 05/17/2023 to keep him n.p.o. after midnight. More than 50% of the time spent with the patient today involved coordination of care, counseling and discussion of conservative versus surgical treatment options. Total amount of time spent with the patient was 34 minutes. Qualifiers: Encounter type: initial encounter Fracture alignment: nondisplaced Laterality: left Qualified Code(s): S72.145A - Nondisplaced intertrochanteric fracture of left femur, initial encounter for closed fracture (2) Tobacco use disorder: Coding Level of Care Code Acute Code for Chg Fwd Diagnoses Closed intertrochanteric fracture S72.145A Encounter type: initial encounter Fracture alignment: nondisplaced Laterality: left Tobacco use disorder F17.200 Time Spent (min) 34
[2023-05-16] MEDS: risperiDONE 1 mg Tablet PO ×2 (09:09→18:38)
[2023-05-16] MEDS: amlodipine 5 mg Tablet PO ×2 (09:09→18:38)
[2023-05-16] MEDS: metoprolol tartrate 25 mg Tablet 12.5 MG PO ×2 (09:11→18:36)
--- NOTE | 2023-05-16 16:28 | P.PN_ITS ---
Subjective Subjective: Patient was seen this morning, his pain is well controlled, denies any fevers, chills, nausea, vomiting, no abdominal pain Vitals/I&O/Wt Last Vital Signs Temp 98.9 F 05/16/23 15:32 Pulse 80 05/16/23 15:32 Resp 18 05/16/23 15:32 BP 112/61 05/16/23 15:32 Pulse Ox 90 05/16/23 15:32 O2 Del Method Room Air 05/16/23 15:32 05/16/23 05/16/23 05/16/23 06:59 14:59 22:59 Intake Total 831.25 / 1081.25 1080 / 1080 Output Total 950 / 3250 Balance -118.75 / -2168.75 1080 / 1080 Weight last 48 hrs Weight 72.575 kg Physical Exam Const: COMMON NORMALS: no acute distress and patient oriented x3 Resp: COMMON NORMALS: normal respiratory effort, No retractions, No use of accessory muscles and clear to auscultation bilaterally AUSCULTATION: clear to auscultation bilaterally Cardio: COMMON NORMALS: regular rate, regular rhythm, S1 normal heart sound present and S2 normal heart sound present RATE: regular rate RHYTHM: regular rhythm HEART SOUNDS: S1 normal heart sound present and S2 normal heart sound present GI: COMMON NORMALS: Normal to inspection, nondistended, normoactive bowel sounds present and non-tender Extremity: COMMON NORMALS: no pedal edema Neuro: COMMON NORMALS: patient oriented x3 Psych: COMMON NORMALS: mental status grossly normal Urinary Catheter Management: Burgess: Cath Placed During This Visit: yes Reason for Continuing Indwelling Catheter: Perioperative Use in Selected Surgeries Urinary Catheter Date of Insertion: 05/15/23 Urinary Catheter Time of Insertion: 15:52 Data 05/16/23 06:00 05/16/23 06:00 A&P Assessment and plan (1) Closed intertrochanteric fracture: IMPRESSION: 1. Acute nondisplaced intertrochanteric fracture of the LEFT hip. 2. Moderately advanced DJD. Old bilateral pelvic fractures. -Pain control morphine -Hold Lovenox today for plans on surgery tomorrow -Orthopedic service on consult Qualifiers: Encounter type: initial encounter Fracture alignment: nondisplaced Lat erality: left Qualified Code(s): S72.145A - Nondisplaced intertrochanteric fracture of left femur, initial encounter for closed fracture (2) Iliac artery stenosis, bilateral: Lower Extremity Diagnostic Findings ? INDICATION: 68-year-old man with past medical history of smoking and hypertension was referred for evaluation of peripheral artery disease. According to patient he has been having severe lifestyle-limiting claudication. He has difficulty walking to the mailbox and has to rest. Pain becomes severe. He had CTA with run off done yesterday. It showed moderate to severe stenosis of bilateral iliac arteries. Plan for peripheral angiogram with possible percutanoeus intervention. ? Right lower extremity findings: Right common iliac artery: Severe, calcified 95% stenosis. Right external iliac artery: Patent. Right common femoral artery: Mild to moderate 20 to 30% stenosis. Right distal SFA: Total occlusion. Reconstitution of distal popliteal artery at bifurcation of anterior tibial and TP segment.? Three-vessel runoff to the foot.. ? Left lower extremity findings: Left common iliac artery: Patent. Left external iliac artery: Patent. Left common femoral artery: Total occlusion. Left superficial femoral artery: Below common femoral artery, imaging is of limited quality however appears profunda artery is patent and SFA is occluded. On left lower extremity, below the knee imaging not possible because of poor opacification of vessels.. Conclusions ? Severe bilateral peripheral artery stenosis. -We will continue to monitor, ultrasound peripheral extremities (3) COPD (chronic obstructive pulmonary disease): (4) Benign essential HTN: (5) Nicotine dependence, cigarettes, with unspecified nicotine-induced disorders: Smoking cessation counseling Plan Denies a history of CAD, no history of strokes, no history of DVT no history of PE, does have history of COPD, does have a history of peripheral vascular disease, no plans on any bypass surgery for his peripheral vascular disease Attestations Medical Necessity Statement*: Patient requires hospitalization for hip fracture, n.p.o. midnight, for surgical intervention tomorrow Diagnoses Closed intertrochanteric fracture S72.145A Encounter type: initial encounter Fracture alignment: nondisplaced Laterality: left Iliac artery stenosis, bilateral I77.1 COPD (chronic obstructive pulmonary disease) J44.9 Benign essential HTN I10 Nicotine dependence, cigarettes, with unspecified nicotine-induced disorders F17.219
[2023-05-16] MEDS: pantoprazole 40 mg SDV IVP (18:38)
[2023-05-16] MEDS: quetiapine 300 mg Tablet PO (20:04)
[2023-05-17] VITALS (24 sets, daily range): BP systolic 98–129; BP diastolic 56–75; PULSE 71–99; RESP 12–31; TEMP 36.4–37.1; O2SAT 85–97
--- NOTE | 2023-05-17 | XR_ITS ---
WS: [id number] Exam: XR hip LT 2-3V wo/w pel* [id number] Date/Time of Exam: 05/17/2023 12:00 AM Reason For Exam: SURGICAL PROCEDURE AP and lateral C-arm images of the LEFT hip are submitted for evaluation. An intertrochanteric fracture of the LEFT hip is stabilized with an intramedullary osman and femoral ne ck screw in satisfactory alignment for healing. Postoperative changes in the adjacent soft tissues. IMPRESSION: 1. Satisfactory ORIF involving an intertrochanteric fracture of the LEFT hip.
[2023-05-17 06:00] LABS: Basophils % 0.5 %; Eosinophils # 0.1 10^3/uL (0.0-0.8); Eosinophils % 1.8 %; Hematocrit 31.2 % (37-53); Lymphocytes # 1.8 10^3/uL (0.8-4.8); Lymphocytes % 23.4 %; Mean Corpuscular HGB Conc 34.9 g/dL (30-55); Mean Corpuscular Hemoglobin 33.7 pg (27-33); Mean Corpuscular Volume 96.6 fl (82-101); Mean Platelet Volume 8.1 fL (7.4-10.4); Monocytes # 0.7 10^3/uL (0.2-0.9); Monocytes % 8.4 %; Neutrophils # 5.11 10^3/uL (1.8-7.7); Neutrophils % 65.6 %; Nucleated Red Blood Cells % 0 %; Platelet Count 136 10^3/cmm (157-399); Red Blood Count 3.23 10^6/uL (3.85-5.65); Red Cell Distribution Width 13.2 % (12.1-15.1); White Blood Count 7.78 10^3/uL (3.29-11.43)
[2023-05-17 06:20] LABS: Magnesium 1.8 mg/dL (1.7-2.3)
[2023-05-17 06:23] LABS: Blood Urea Nitrogen 9 mg/dL (8-23); Calcium 8.6 mg/dL (8.5-10.5); Carbon Dioxide 24 mmol/L (22-29); Chloride 105 mmol/L (98-107); Glomerular Filtration Rate 135.2 mL/min (90-130); Glucose 104 mg/dL (65-115); Osmolality Calculated 285 mOsm/kg (285-295); Sodium 138 mmol/L (136-145)
--- NOTE | 2023-05-17 06:33 | W.PM.OPSUD ---
Surgery/Procedure H&P Update DATE OF PROCEDURE: May 17, 2023 DATE H&P PERFORMED: 05/16/23 H&P UPDATE INFORMATION: I have reviewed H&P completed within last 30 days, I have examined patient prior to procedure and No changes to prior documentation PREOP DIAGNOSIS: Left intertrochanteric hip fracture PLANNED PROCEDURE: Operation Date: 05/17/23 08:00 Proposed Procedures p Trochanteric Femoral Nail(Left) - Agustin Arechiga DO
[2023-05-17] MEDS: metoprolol tartrate 25 mg Tablet 12.5 MG PO ×2 (07:25→17:36)
[2023-05-17] MEDS: amlodipine 5 mg Tablet PO ×2 (07:29→17:36)
--- NOTE | 2023-05-17 08:06 | ANES.PREANE2 ---
Pre-Anesthetic Assessment Height/Weight: Height 1.8 m Weight 72.575 kg Temp Pulse Resp BP Pulse Ox O2 Del Method O2 Flow Rate 98.3 F 94 20 H 129/65 90 Nasal Cannula 1 05/17/23 07:30 05/17/23 07:30 05/17/23 07:30 05/17/23 07:30 05/17/23 07:30 05/17/23 07:30 05/17/23 07:30 Preop Diagnosis: Left intertrochanteric hip fracture Operation Date: 05/17/23 08:00 Proposed Procedures p Trochanteric Femoral Nail(Left) - Agustin Arechiga, DO Familial anesthetic complications: None Was Beta Frederick taken within 24 hours: Yes Was Clonidine taken within 24 hours: N/A Last intake: Intake Last Liquid Date 05/16/23 Last Liquid Time 18:30 Last Solid Date 05/16/23 Last Solid Time 18:30 Social Alcohol and Tobacco Exam alert, oriented x 3, clear to auscultation bilaterally and regular rate & rhythm Airway Mallampati: Class II Dentition: chipped and other (missing) Pulmonary Chronic Obstructive Pulmonary Disease CV/HEM Hypertension and Peripheral Vascular Disease Anesthetic Plan ASA status: 3 Anesthesia: General Risk of > 500 ml blood loss (7ml/kg in children): No Medications/Allergies Home Medications Medication Instructions Recorded Confirmed Last Taken Type amlodipine 5 mg tablet (Norvasc) 5 mg PO BID 90 days #180 tabs 09/27/22 05/15/23 05/15/23 Rx metoprolol tartrate 25 mg tablet 12.5 mg PO BID #90 tabs 09/27/22 05/15/23 05/15/23 Rx triamcinolone acetonide 0.1 % 1 applic topical DAILY PRN Rash 12/20/22 05/15/23 Unknown History topical cream quetiapine 300 mg tablet 300 mg PO .HS #90 tabs 03/06/23 05/15/23 05/14/23 Rx risperidone 1 mg tablet 1 mg PO BID #180 tabs 03/06/23 05/15/23 05/15/23 Rx trihexyphenidyl 2 mg tablet 2 mg PO TID #270 tabs 03/06/23 05/15/23 05/15/23 Rx albuterol sulfate 90 mcg/actuation 2 puff inhalation Q6H PRN 03/28/23 05/15/23 Unknown Rx aerosol inhaler (Ventolin HFA) shortness of breath or wheezing #8.5 grams Allergies Allergy/AdvReac Type Severity Reaction Status Date / Time Sulfa (Sulfonamide Allergy Unknown Verified 05/15/23 13:33 Antibiotics) trazodone Allergy Unknown Verified 05/15/23 13:33 Current Medications Generic Name Dose Route Start Last Admin Trade Name Freq PRN Reason Stop Dose Admin Amlodipine Besylate 5 mg 05/15/23 18:00 05/17/23 07:29 Amlodipine 5 Mg Tablet PO 5 mg BID BAILEE Administration Denture Adhesive 1 each 05/15/23 20:23 05/15/23 20:30 Efferdent Effervescent DENTAL 1 each PRN PRN Administration Denture cleaner and preparer Enoxaparin Sodium 40 mg 05/15/23 18:15 05/15/23 18:22 Enoxaparin 40 Mg/0.4 Ml Syringe SUBCUT 40 mg Q24H BAILEE Administration Sodium Chloride 1,000 mls @ 75 mls/hr 05/15/23 17:40 05/16/23 18:41 Sodium Chloride 0.9% IV 75 mls/hr .[id number] BAILEE Administration Metoprolol Tartrate 12.5 mg 05/15/23 18:00 05/17/23 07:25 Metoprolol Tartrate 25 Mg Tablet PO 12.5 mg BID BAILEE Administration Morphine Sulfate 2 mg 05/15/23 17:40 05/16/23 22:49 Morphine 4 Mg/Ml Sdv 1 Ml IVP 2 mg Q4H PRN Administration SEVERE PAIN Pantoprazole Sodium 40 mg 05/15/23 18:30 05/16/23 18:38 Pantoprazole 40 Mg Sdv IVP 40 mg Q24H BAILEE Administration Quetiapine Fumarate 300 mg 05/15/23 21:00 05/16/23 20:04 Quetiapine 300 Mg Tablet PO 300 mg BEDTIME BAILEE Administration Risperidone 1 mg 05/15/23 18:00 05/17/23 07:42 Risperidone 1 Mg Tablet PO Not Given BID BAILEE Trihexyphenidyl HCl 2 mg 05/15/23 21:00 05/17/23 07:42 Trihexyphenidyl 2 Mg Tablet PO Not Given TID BAILEE PFSH Anesthesia Medical History Alcohol dependence, in remission Aortic aneurysm Last looked at on 03/05 - 3.1 cm Bladder cancer COPD (chronic obstructive pulmonary disease) Erectile dysfunction External otitis of left ear On combination antipsychotic drug therapy Psychiatric care Residual schizophrenia Tobacco use disorder Surgical History S/P appendectomy S/P TURP Family History Other Cancer Diabetes Social History Smoking and tobacco status: current every day smoker cigarettes Packs smoked per day: 2 Smoking risk assessment/counseling performed?: Yes Tobacco counseling given: counseling >3 minutes Alcohol intake: former Substance/Drug Use: former Date of last use: THC & SPEED Data Anesthesia 05/17/23 05:27 05/17/23 05:27 Short CBC 05/15/23 05/16/23 05/17/23 Range/Units 14:09 06:00 05:27 WBC 15.07 H 7.31 7.78 (3.29-11.43) 10^3/uL Hgb 12.80 11.00 L 10.90 L (11.27-16.99) g/dL Hct 36.5 L 32.0 L 31.2 L (37-53) % MCV 95.5 95.0 96.6 (82-101) fl Plt Count 189 160 136 L (157-399) 10^3/cmm Neut % (Auto) 89.3 62.1 65.6 % Neut # (Auto) 13.46 H 4.54 5.11 (1.8-7.7) 10^3/uL BMP 05/15/23 05/16/23 05/17/23 14:09 06:00 05:27 Sodium 130 L 134 L 138 Potassium 4.4 4.1 4.0 Chloride 95 L 102 105 Carbon Dioxide 23 24 24 BUN 15 11 9 Creatinine 0.9 0.7 0.6 L Glucose 146 H 107 104 Calcium 8.9 8.6 8.6 Cardiac Enzymes 05/15/23 05/15/23 05/15/23 Range/Units 14:09 14:09 17:43 Creatine Kinase 133 (39-308) U/L Troponin T Baseline 7 (0-15) ng/L Troponin T 120 Minute (0-15) ng/L Delta Troponin T (0-10) ABS# Troponin T Hi Sens 6Hr (0-15) ng/L Troponin T Hi Sens 6Hr Delta (0-12) ng/L NT-Pro-B Natriuret Pep 36 (0-125) pg/mL 05/15/23 05/15/23 Range/Units 19:48 23:25 Creatine Kinase (39-308) U/L Troponin T Baseline (0-15) ng/L Troponin T 120 Minute 9.17 (0-15) ng/L Delta Troponin T 2.17 (0-10) ABS# Troponin T Hi Sens 6Hr 10.41 (0-15) ng/L Troponin T Hi Sens 6Hr Delta 3.41 (0-12) ng/L NT-Pro-B Natriuret Pep (0-125) pg/mL Liver Function 05/15/23 05/16/23 Range/Units 14:09 06:00 Total Bilirubin 0.3 0.4 (0.15-1.2) mg/dL AST 14 16 (0-40) U/L ALT 9 8 (0-41) U/L Alkaline Phosphatase 78 57 (40-130) U/L Albumin 4.6 3.9 (3.5-5.2) g/dL Urine 05/15/23 Range/Units 15:42 Urine Color Yellow (Yellow) Urine Appearance Clear (CLEAR) Urine pH 5 (5-7) Ur Specific [place] 1.020 (1.005-1.030) Urine Protein Neg (Negative) Urine Glucose (UA) Norm (Normal) Urine Ketones Negative (Negative) Urine Nitrate Negative (Negative) Urine Bilirubin Neg (Negative) Ur Leukocyte Esterase Negative (Negative) Urine RBC 5-10 H (0-2) /hpf Urine WBC 0-4 H (0-5) /hpf Coags 05/15/23 14:09 PT 13.20 INR 0.97 Cardiac Studies: No Data to Display
[2023-05-17] MEDS: sodium chloride 0.9% 1,000 ML 30 ML IV (08:10)
[2023-05-17] MEDS: ceFAZolin 1,000 mg SDV 2000 MG (08:45)
--- NOTE | 2023-05-17 09:30 | PM.OP ---
Operative Report Date of procedure: May 17, 2023 Pre-op diagnosis: Left intertrochanteric hip fracture Post-op diagnosis: same Procedure done: Left intramedullary hip nail Surgeon: Agustin Arechiga DO Member Services Representative: None Estimated blood loss (mL): 10 Procedure: Left intramedullary hip nail Patient brought the operative suite after going anesthesia was placed in the supine position on the [place] table. All areas impingement were well-padded. Patient was then prepped and draped normal sterile fashion. C-arm was brought in AP lateral fluoroscopy ensured the fracture was reduced this was done by applying traction and internal rotation. Skin incision made at the proximal end of the greater trochanter. Starting pin was inserted. Opening reamer was inserted. Nail was then inserted. Attached to the jig. The guidewire was placed up through the jig through the femur and into the femoral head. In the center center position on the AP and lateral fluoroscopy. The length was measured to be 110. 105 mm screw was chosen. The pathway was drilled. The screw was then placed and then compressed 5 mm. The locking mechanism on top the nail was used to hold the compression. Next tension was brought to placing the distal locking screw. Again a portal was made inside of the thigh. The screw hole was drilled. And a 45 mm screw was placed. Wounds were irrigated and closed with Vicryl and bárbara. Sterile dressings were applied patient was transferred to the PACU in stable condition.
[2023-05-17] MEDS: HYDROcodone-acetaminophen 5-325 mg Tablet PO ×3 (10:42→19:31)
[2023-05-17] MEDS: sodium chloride 0.9% 1,000 ML 75 ML IV (14:13)
--- NOTE | 2023-05-17 14:18 | P.PN_ITS ---
Subjective Subjective: Patient was seen in postop recovery, he is alert to person, to place, follows commands, complaining of pain, no fevers, no chills, no cough he tells me he lives at home by himself, Vitals/I&O/Wt Last Vital Signs Temp 97.5 F L 05/17/23 12:20 Pulse 82 05/17/23 12:20 Resp 18 05/17/23 12:20 BP 102/61 05/17/23 12:20 Pulse Ox 95 05/17/23 12:20 O2 Del Method Nasal Cannula 05/17/23 12:20 O2 Flow Rate 4 05/17/23 12:20 05/16/23 05/17/23 05/17/23 22:59 06:59 14:59 Intake Total 1430 / 2510 1290 / 1290 Output Total 2650 / 2650 650 / 3300 Balance -1220 / -140 -650 / -790 1270 / 1270 Physical Exam Const: COMMON NORMALS: no acute distress and patient oriented x3 Resp: COMMON NORMALS: normal respiratory effort, No retractions, No use of accessory muscles and clear to auscultation bilaterally AUSCULTATION: clear to auscultation bilaterally Cardio: COMMON NORMALS: regular rate, regular rhythm, S1 normal heart sound present and S2 normal heart sound present RATE: regular rate RHYTHM: regular rhythm HEART SOUNDS: S1 normal heart sound present and S2 normal heart sound present GI: COMMON NORMALS: Normal to inspection, nondistended, normoactive bowel sounds present and non-tender Extremity: COMMON NORMALS: no pedal edema Neuro: COMMON NORMALS: patient oriented x3 Psych: COMMON NORMALS: mental status grossly normal Urinary Catheter Management: Burgess: Cath Placed During This Visit: yes Reason for Continuing Indwelling Catheter: Acute Urinary Retention or Obstruction Urinary Catheter Date of Insertion: 05/15/23 Urinary Catheter Time of Insertion: 15:52 Data 05/17/23 05:27 05/17/23 05:27 A&P Assessment and plan (1) Closed intertrochanteric fracture: IMPRESSION: 1. Acute nondisplaced intertrochanteric fracture of the LEFT hip. 2. Moderately advanced DJD. Old bilateral pelvic fractures. -Pain control morphine -s/p surgical intervention -lovenox for dvt prophylaxis -Orthopedic service on consult Qualifiers: Encounter type: initial encounter Fracture alignment: nondisplaced Laterality: left Qualified Code(s): S72.145A - Nondisplaced intertrochanteric fracture of left femur, initial encounter for closed fracture (2) Iliac artery stenosis, bilateral: Lower Extremity Diagnostic Findings ? INDICATION: 68-year-old man with past medical history of smoking and hypertension was referred for evaluation of peripheral artery disease. According to patient he has been having severe lifestyle-limiting claudication. He has difficulty walking to the mailbox and has to rest. Pain becomes severe. He had CTA with run off done yesterday. It showed moderate to severe stenosis of bilateral iliac arteries. Plan for peripheral angiogram with possible percutanoeus intervention. ? Right lower extremity findings: Right common iliac artery: Severe, calcified 95% stenosis. Right external iliac artery: Patent. Right common femoral artery: Mild to moderate 20 to 30% stenosis. Right distal SFA: Total occlusion. Reconstitution of distal popliteal artery at bifurcation of anterior tibial and TP segment.? Three-vessel runoff to the foot.. ? Left lower extremity findings: Left common iliac artery: Patent. Left external iliac artery: Patent. Left common femoral artery: Total occlusion. Left superficial femoral artery: Below common femoral artery, imaging is of limited quality however appears profunda artery is patent and SFA is occluded. On left lower extremity, below the knee imaging not possible because of poor opacification of vessels.. Conclusions ? Severe bilateral peripheral artery stenosis. -We will continue to monitor, ultrasound peripheral extremities (3) COPD (chronic obstructive pulmonary disease): (4) Benign essential HTN: (5) Nicotine dependence, cigarettes, with unspecified nicotine-induced diso rders: Smoking cessation counseling Plan Denies a history of CAD, no history of strokes, no history of DVT no history of PE, does have history of COPD, does have a history of peripheral vascular disease, no plans on any bypass surgery for his peripheral vascular disease Attestations Medical Necessity Statement*: Patient requires hospitalization for hip fracture Diagnoses Closed intertrochanteric fracture S72.145A Encounter type: initial encounter Fracture alignment: nondisplaced Laterality: left Iliac artery stenosis, bilateral I77.1 COPD (chronic obstructive pulmonary disease) J44.9 Benign essential HTN I10 Nicotine dependence, cigarettes, with unspecified nicotine-induced disorders F17.219
--- NOTE | 2023-05-17 14:47 | USR_ITS ---
PROCEDURE INFORMATION: Exam: US Duplex Bilateral Lower Extremity Arteries Exam date and time: 05/17/2023 3:14 PM Age: 67 years old Clinical indication: Other: Cold legs and feet; Additional info: Acute limb ischemia TECHNIQUE: Imaging protocol: Real-time ultrasound scan of the arteries of the bilateral lower extremities with 2-D meade scale, color Doppler flow and spectral waveform analysis. Images documented and saved. COMPARISON: No relevant prior studies available. FINDINGS: No flow is detected in the left iliac and common femoral arteries. The left superficial femoral, popliteal, and posterior tibial artery demonstrate flow but monophasic waveforms and relatively low velocity measurements. No significant stenosis in the visualized patent left sided vessels. No occluded vessels are seen on the right. Monophasic waveforms are noted and there are relatively low flow velocity measurements throughout. US/[place] [id number] IMPRESSION: The left iliac and common femoral arteries are occluded. Remaining left lower extremity vessels demonstrate flow and no significant stenosis but monophasic waveforms and low flow velocities are noted. No occlusion on the right but there are monophasic waveforms and low flow velocity measurements as well. Bilateral inflow disease should be considered. Consider further evaluation with CTA, DSA, or MRA. THIS REPORT CONTAINS FINDINGS THAT MAY BE CRITICAL TO PATIENT CARE. The findings were verbally communicated via telephone conference with SOREN NICHOLSON at 4:13 PM CDT on 05/17/2023. The findings were acknowledged and understood.
[2023-05-17 16:03] LABS: Lactate (Lactic Acid level) 1.2 mmol/L (0.5-2.2)
[2023-05-17] MEDS: aspirin 81 mg EC Tablet PO (16:16)
[2023-05-17] MEDS: atorvastatin 40 mg Tablet PO (16:16)
[2023-05-17] MEDS: ceFAZolin 2,000 MG in sodium chloride 0.9% (plus) 50 ML 100 MG IV (16:24)
--- NOTE | 2023-05-17 17:19 | P.PNCC_ITS ---
Critical Care Event Note The high probability of a clinically significant, sudden or life threatening deterioration of the patient's [] system(s) required my full and direct attention, intervention and personal management. The critical care time is as shown. This time is in addition to time spent performing any reported procedures but includes the following: [x] Data and vital sign review and interpretation [x] Patient assessment, examination and intervention [x] Documentation [x] Medication orders and management Critical Care Time Code activated: No Critical Care Time (min): 45 Additional information about critical care time: Patient was seen immediately postoperatively, he is smiling, he is doing okay he tells me, he is not really complaining of pain in his left leg, some pain in his left hip, we are unable to get Doppler pulses on him, left lower extremity is cool, clammy, no pain, no dusky in appearance, no changes in color, has good capillary refill he does not really complain of pain -My immediate concern was for acute limb ischemia, so I placed him on a heparin drip, aspirin, statin, -He has had a peripheral angiogram ?Right lower extremity findings: Right common iliac artery: Severe, calcified 95% stenosis. Right external iliac artery: Patent. Right common femoral artery: Mild to moderate 20 to 30% stenosis. Right distal SFA: Total occlusion. Reconstitution of distal popliteal artery at bifurcation of anterior tibial and TP segment.? Three-vessel runoff to the foot.. ? Left lower extremity findings: Left common iliac artery: Patent. Left external iliac artery: Patent. Left common femoral artery: Total occlusion. Left superficial femoral artery: Below common femoral artery, imaging is of limited quality however appears profunda artery is patent and SFA is occluded. On left lower extremity, below the knee imaging not possible because of poor opacification of vessels. -He has known disease in the left common femoral, and left superficial femoral -For which she was referred to Dr. Naranjo in [place] -Patient confirms that he followed up with vascular surgery, there is no plans of surgical intervention, when he met with the vascular surgeon, -Patient had a left hip fracture surgery, no acute displacement, requiring nailing, no complete replacement -I spoke with Dr. Arechiga, who did not feel that these changes were related to his recent surgery, Dr. Arechiga was okay with heparin drip -I reviewed the films with Dr. Golden, -Recommended arterial ultrasound -Arterial ultrasound -MPRESSION: The left iliac and common femoral arteries are occluded.? Remaining left lower extremity vessels demonstrate flow and no significant stenosis but monophasic waveforms and low flow velocities are noted. No occlusion on the right but there are monophasic waveforms and low flow velocity measurements as well. -Reviewed again with Dr. Mendez, patient does have collateral blood flow, but recommended consultation with vascular surgery -Spoke to vascular surgery at [facility], they felt that the lack of DP PT pulses are not acute, given his left common femoral and left SFA are down -Certainly the left iliac could be new, but does have severe disease on his prior imaging, -They did not feel that there is anything acute, no transfer required no urgent surgical intervention required -Commended medical management, with a close follow with Dr. Naranjo as outpatient -We will medically manage, with aspirin, statin, continue heparin drip -Continue rewarming of left lower extremity Coding Level of Care Code Acute Code for Chg Fwd
[2023-05-17] MEDS: risperiDONE 1 mg Tablet PO (17:36)
[2023-05-17] MEDS: pantoprazole 40 mg SDV IVP (17:36)
[2023-05-17] MEDS: heparin drip 25,000 UNIT/500 ML PREMIX 20 UNIT IV (17:39)
[2023-05-17] MEDS: heparin 5,000 unit/mL INJ 1 mL IV (17:41)
[2023-05-17] MEDS: quetiapine 300 mg Tablet PO (20:48)
[2023-05-18] VITALS (11 sets, daily range): BP systolic 97–117; BP diastolic 56–67; PULSE 67–100; RESP 16–18; TEMP 36.5–37.2; O2SAT 90–94
[2023-05-18] MEDS: ceFAZolin 2,000 MG in sodium chloride 0.9% (plus) 50 ML 100 MG IV ×2 (00:40→08:20)
[2023-05-18 00:50] LABS: Partial Thromboplastin Time 58.6 SECONDS (23.9-36.7)
[2023-05-18] MEDS: sodium chloride 0.9% 1,000 ML 75 ML IV (03:56)
[2023-05-18 05:24] LABS: Basophils % 0.4 %; Eosinophils # 0.1 10^3/uL (0.0-0.8); Eosinophils % 1.6 %; Hematocrit 28.3 % (37-53); Lymphocytes # 1.4 10^3/uL (0.8-4.8); Lymphocytes % 18.7 %; Mean Corpuscular HGB Conc 33.2 g/dL (30-55); Mean Corpuscular Hemoglobin 32.9 pg (27-33); Mean Platelet Volume 8.5 fL (7.4-10.4); Monocytes # 0.5 10^3/uL (0.2-0.9); Monocytes % 6.3 %; Neutrophils # 5.51 10^3/uL (1.8-7.7); Neutrophils % 72.6 %; Nucleated Red Blood Cells % 0 %; Platelet Count 125 10^3/cmm (157-399); Red Blood Count 2.86 10^6/uL (3.85-5.65); Red Cell Distribution Width 13.2 % (12.1-15.1); White Blood Count 7.59 10^3/uL (3.29-11.43)
[2023-05-18 05:57] LABS: Anion Gap 11.9 (5-19); Blood Urea Nitrogen 9 mg/dL (8-23); Calcium 8.1 mg/dL (8.5-10.5); Carbon Dioxide 24 mmol/L (22-29); Chloride 102 mmol/L (98-107); Glomerular Filtration Rate 135.2 mL/min (90-130); Glucose 121 mg/dL (65-115); Magnesium 1.7 mg/dL (1.7-2.3); Osmolality Calculated 278 mOsm/kg (285-295); Potassium 3.9 mmol/L (3.5-5.1); Sodium 134 mmol/L (136-145)
[2023-05-18 06:30] LABS: Partial Thromboplastin Time 59.4 SECONDS (23.9-36.7)
[2023-05-18] MEDS: risperiDONE 1 mg Tablet PO ×2 (08:20→17:37)
[2023-05-18] MEDS: aspirin 81 mg EC Tablet PO (08:20)
[2023-05-18] MEDS: amlodipine 5 mg Tablet PO ×2 (08:20→17:37)
[2023-05-18] MEDS: metoprolol tartrate 25 mg Tablet 12.5 MG PO ×2 (08:20→17:37)
[2023-05-18] MEDS: HYDROcodone-acetaminophen 5-325 mg Tablet PO ×3 (09:49→21:37)
--- NOTE | 2023-05-18 10:27 | PM.PN ---
Subjective Subjective: Patient doing well would like to be discharged today. Patient has been up with therapy doing well is able to flex his hip. Vitals/I&O/Wt Last Vital Signs Temp 98.5 F 05/18/23 08:24 Pulse 79 05/18/23 08:24 Resp 18 05/18/23 08:24 BP 105/62 05/18/23 08:24 Pulse Ox 91 05/18/23 08:24 O2 Del Method Room Air 05/18/23 03:42 O2 Flow Rate 3 05/17/23 21:00 05/17/23 05/18/23 05/18/23 22:59 06:59 14:59 Intake Total 50 / 1340 1050 / 2390 Output Total 200 / 220 300 / 520 Balance -150 / 1120 750 / 1870 Physical Exam Narrative: Patient has 5 out of 5 strength in his left lower extremity. Extremities warm sensations intact Urinary Catheter Management: Burgess: Cath Placed During This Visit: yes Reason for Continuing Indwelling Catheter: Acute Urinary Retention or Obstruction Urinary Catheter Date of Insertion: 05/15/23 Urinary Catheter Time of Insertion: 15:52 Data 05/18/23 04:50 05/18/23 04:50 A&P Assessment and plan (1) Closed intertrochanteric fracture: Patient is postop day #1 from left hip nail Patient is weightbearing as tolerated. At this point he will be on DVT prophylaxis due to his peripheral vascular disease anyway. Plan will be to have him follow-up in 2 weeks in the clinic to get bárbara removed. Qualifiers: Encounter type: initial encounter Fracture alignment: nondisplaced Laterality: left Qualified Code(s): S72.145A - Nondisplaced intertrochanteric fracture of left femur, initial encounter for closed fracture Attestations Medical Necessity Statement*: Per primary service Coding Level of Care Code Acute Code for [facility] Fwd Diagnoses Closed intertrochanteric fracture S72.145A Encounter type: initial encounter Fracture alignment: nondisplaced Laterality: left
[2023-05-18] MEDS: apixaban 5 mg Tablet PO ×2 (11:51→21:38)
[2023-05-18 12:39] LABS: Partial Thromboplastin Time 27.2 SECONDS (23.9-36.7)
--- NOTE | 2023-05-18 12:42 | PC.SOCIAL ---
Imm update Imm updated with patient at bedside. copy of page 2 provided. Patient verbalized understanding. copy in chart initialed, dated and timed.
--- NOTE | 2023-05-18 16:09 | P.PN_ITS ---
Subjective Subjective: Patient was seen this morning, he continues to have left hip pain, but no pain in his left foot, or left leg, no paresthesias, no significant pain, on examination, left lower extremity DP PT pulses not palpable, lower extremities not cool, not clammy, no discoloration, no B who, no dusky appearance, the actually warm, has good capillary refill, denies any fevers, no chills, no cough Vitals/I&O/Wt Last Vital Signs Temp 98.7 F 05/18/23 12:10 Pulse 67 05/18/23 14:00 Resp 18 05/18/23 12:10 BP 105/67 05/18/23 12:10 Pulse Ox 92 05/18/23 12:10 O2 Del Method Room Air 05/18/23 03:42 O2 Flow Rate 3 05/18/23 08:00 05/18/23 05/18/23 05/18/23 06:59 14:59 22:59 Intake Total 1050 / 2390 1128.75 / 1128.75 Output Total 300 / 520 400 / 400 Balance 750 / 1870 728.75 / 728.75 Physical Exam Const: COMMON NORMALS: no acute distress and patient oriented x3 Resp: COMMON NORMALS: normal respiratory effort, No retractions, No use of accessory muscles and clear to auscultation bilaterally AUSCULTATION: clear to auscultation bilaterally Cardio: COMMON NORMALS: regular rate, regular rhythm, S1 normal heart sound present and S2 normal heart sound present RATE: regular rate RHYTHM: regular rhythm HEART SOUNDS: S1 normal heart sound present and S2 normal heart sound present GI: COMMON NORMALS: Normal to inspection, nondistended, normoactive bowel sounds present and non-tender Extremity: COMMON NORMALS: no pedal edema Neuro: COMMON NORMALS: patient oriented x3 Psych: COMMON NORMALS: mental status grossly normal Urinary Catheter Management: Burgess: Cath Placed During This Visit: yes Reason for Continuing Indwelling Catheter: Acute Urinary Retention or Obstruction Urinary Catheter Date of Insertion: 05/15/23 Urinary Catheter Time of Insertion: 15:52 Data 05/18/23 04:50 05/18/23 04:50 A&P Assessment and plan (1) Closed intertrochanteric fracture: IMPRESSION: 1. Acute nondisplaced intertrochanteric fracture of the LEFT hip. 2. Moderately advanced DJD. Old bilateral pelvic fractures. -Pain control morphine -s/p surgical intervention -lovenox for dvt prophylaxis -Orthopedic service on consult Qualifiers: Encounter type: initial encounter Fracture alignment: nondisplaced Laterality: left Qualified Code(s): S72.145A - Nondisplaced intertrochanteric fracture of left femur, initial encounter for closed fracture (2) Iliac artery stenosis, bilateral: Lower Extremity Diagnostic Findings ? INDICATION: 68-year-old man with past medical history of smoking and hypertension was referred for evaluation of peripheral artery disease. According to patient he has been having severe lifestyle-limiting claudication. He has difficulty walking to the mailbox and has to rest. Pain becomes severe. He had CTA with run off done yesterday. It showed moderate to severe stenosis of bilateral iliac arteries. Plan for peripheral angiogram with possible percutanoeus intervention. ? Right lower extremity findings: Right common iliac artery: Severe, calcified 95% stenosis. Right external iliac artery: Patent. Right common femoral artery: Mild to moderate 20 to 30% stenosis. Right distal SFA: Total occlusion. Reconstitution of distal popliteal artery at bifurcation of anterior tibial and TP segment.? Three-vessel runoff to the foot.. ? Left lower extremity findings: Left common iliac artery: Patent. Left external iliac artery: Patent. Left common femoral artery: Total occlusion. Left superficial femoral artery: Below common femoral artery, imaging is of limited quality however appears profunda artery is patent and SFA is occluded. On left lower extremity, below the knee imaging not possible because of poor opacification of vessels.. Conclusions ? Severe bilateral peripheral artery stenosis. -We will continue to monitor, ultrasound peripheral extremities Concerns for acute limb ischemia postoperatively had arterial ultrasound IMPRESSION: The left iliac and common femoral arteries are occluded.? Remaining left lower extremity vessels demonstrate flow and no significant stenosis but monophasic waveforms and low flow velocities are noted. No occlusion on the right but there are monophasic waveforms and low flow velocity measurements as well. Bilateral inflow disease should be considered.? Consider further evaluation -Spoke to vascular surgery recommended medical management, with close outpatient follow-up -Currently on heparin drip will transition off to Eliquis continue aspirin, statin -Currently left lower extremity, is warm to touch, good capillary refill, no pain, DP PT pulses not palpable, which is not unusual given his SFA chronically being occluded, and left common being chronically occluded, now with left iliac, but does have collateral blood flow -Likely discharge tomorrow monitor hemoglobin (3) COPD (chronic obstructive pulmonary disease): (4) Benign essential HTN: (5) Nicotine dependence, cigarettes, with unspecified nicotine-induced disorders: Smoking cessation counseling Plan Denies a history of CAD, no history of strokes, no history of DVT no history of PE, does have history of COPD, does have a history of peripheral vascular disease, no plans on any bypass surgery for his peripheral vascular disease Attestations Medical Necessity Statement*: Patient requires hospitalization for peripheral vascular disease, anemia,concern for acute limb ischemia Diagnoses Closed intertrochanteric fracture S72.145A Encounter type: initial encounter Fracture alignment: nondisplaced Laterality: left Iliac artery stenosis, bilateral I77.1 COPD (chronic obstructive pulmonary disease) J44.9 Benign essential HTN I10 Nicotine dependence, cigarettes, with unspecified nicotine-induced disorders F17.219
--- NOTE | 2023-05-18 16:36 | PC.NURSE ---
gaona removed at approx 1030 today
[2023-05-18] MEDS: pantoprazole 40 mg SDV IVP (17:46)
[2023-05-18] MEDS: quetiapine 300 mg Tablet PO (21:38)
[2023-05-18] MEDS: atorvastatin 40 mg Tablet PO (21:38)
[2023-05-19] VITALS (9 sets, daily range): BP systolic 101–132; BP diastolic 63–76; PULSE 73–103; RESP 17–20; TEMP 36.5–37; O2SAT 93–98
[2023-05-19 05:43] LABS: Basophils % 0.6 %; Eosinophils # 0.2 10^3/uL (0.0-0.8); Eosinophils % 2.7 %; Hematocrit 27.2 % (37-53); Lymphocytes # 1.6 10^3/uL (0.8-4.8); Lymphocytes % 22.7 %; Mean Corpuscular HGB Conc 33.1 g/dL (30-55); Mean Corpuscular Hemoglobin 33.1 pg (27-33); Mean Platelet Volume 8.4 fL (7.4-10.4); Monocytes # 0.5 10^3/uL (0.2-0.9); Monocytes % 7.8 %; Neutrophils # 4.57 10^3/uL (1.8-7.7); Neutrophils % 65.8 %; Nucleated Red Blood Cells % 0 %; Platelet Count 144 10^3/cmm (157-399); Red Blood Count 2.72 10^6/uL (3.85-5.65); Red Cell Distribution Width 13.1 % (12.1-15.1); White Blood Count 6.95 10^3/uL (3.29-11.43)
[2023-05-19 05:59] LABS: Blood Urea Nitrogen 10 mg/dL (8-23); Calcium 8.2 mg/dL (8.5-10.5); Carbon Dioxide 26 mmol/L (22-29); Chloride 104 mmol/L (98-107); Glomerular Filtration Rate 166.9 mL/min (90-130); Glucose 101 mg/dL (65-115); Osmolality Calculated 283 mOsm/kg (285-295); Sodium 137 mmol/L (136-145)
[2023-05-19 06:07] LABS: Magnesium 1.8 mg/dL (1.7-2.3)
[2023-05-19] MEDS: aspirin 81 mg EC Tablet PO (08:34)
[2023-05-19] MEDS: metoprolol tartrate 25 mg Tablet 12.5 MG PO ×2 (08:35→17:46)
[2023-05-19] MEDS: risperiDONE 1 mg Tablet PO ×2 (08:35→17:45)
[2023-05-19] MEDS: amlodipine 5 mg Tablet PO ×2 (08:35→17:46)
[2023-05-19] MEDS: HYDROcodone-acetaminophen 5-325 mg Tablet PO (09:23)
[2023-05-19] MEDS: apixaban 5 mg Tablet PO ×2 (09:23→19:43)
[2023-05-19] MEDS: FUROsemide 10 mg/mL SDV 2mL 20 MG IVP (09:59)
--- NOTE | 2023-05-19 10:31 | XRR_ITS ---
PROCEDURE INFORMATION: Exam: XR Abdomen Exam date and time: 05/19/2023 5:08 PM Age: 67 years old Clinical indication: Constipation TECHNIQUE: Imaging protocol: Radiologic exam of the abdomen. Views: Frontal supine view of the abdomen. 1 View. COMPARISON: CT angio abdomen [id number] 03/08/2022 10:43 AM FINDINGS: Gastrointestinal tract: Moderate constipation without bowel dilation to indicate obstruction. Bones/joints: Degenerative changes in the spine. 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 XR/XR KUB portable [id number] IMPRESSION: 1. Moderate constipation without bowel dilation to indicate obstruction. 2. Degenerative changes in the spine. 3. 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
[2023-05-19] MEDS: polyethylene glycol 3350 Pkt 17 gm PO (11:19)
--- NOTE | 2023-05-19 13:38 | P.PN_ITS ---
Subjective Subjective: Patient was seen this morning, he tells me that he cannot manage at home, he barely took a few steps and felt weak, I he wants to go to a long-term, has left hip pain, but no left leg or left foot pain, numbness, tingling, on examination, his left foot is a bit cool, DP PT pulses are nonpalpable has capillary refill, has good sensation, has no pain on palpation Vitals/I&O/Wt Last Vital Signs Temp 97.9 F 05/19/23 11:57 Pulse 79 05/19/23 11:57 Resp 18 05/19/23 11:57 BP 101/65 05/19/23 11:57 Pulse Ox 97 05/19/23 11:57 O2 Del Method Nasal Cannula 05/19/23 11:57 O2 Flow Rate 2 05/19/23 11:57 05/18/23 05/19/23 05/19/23 22:59 06:59 14:59 Intake Total 600 / 1728.75 472 / 472 Output Total 300 / 700 400 / 1100 500 / 500 Balance 300 / 1028.75 -400 / 628.75 -28 / -28 Physical Exam Const: COMMON NORMALS: no acute distress and patient oriented x3 Resp: COMMON NORMALS: normal respiratory effort, No retractions, No use of accessory muscles and clear to auscultation bilaterally AUSCULTATION: clear to auscultation bilaterally Cardio: COMMON NORMALS: regular rate, regular rhythm, S1 normal heart sound present and S2 normal heart sound present RATE: regular rate RHYTHM: regular rhythm HEART SOUNDS: S1 normal heart sound present and S2 normal heart sound present GI: COMMON NORMALS: Normal to inspection, nondistended, normoactive bowel sounds present and non-tender Extremity: COMMON NORMALS: no pedal edema Neuro: COMMON NORMALS: patient oriented x3 Psych: COMMON NORMALS: mental status grossly normal Urinary Catheter Management: Burgess: Cath Placed During This Visit: yes, but has since been removed by the nurse Reason for Continuing Indwelling Catheter: Decision to DC Catheter Urinary Catheter Date of Insertion: 05/15/23 Urinary Catheter Time of Insertion: 15:52 Date Urinary Catheter Removed: 05/18/23 Time Urinary Catheter Discontinued: 10:30 Data 05/19/23 04:48 05/19/23 04:48 A&P Assessment and plan (1) Closed intertrochanteric fracture: IMPRESSION: 1. Acute nondisplaced intertrochanteric fracture of the LEFT hip. 2. Moderately advanced DJD. Old bilateral pelvic fractures. -Pain control morphine -s/p surgical intervention -Eliquis for DVT prophylaxis -Orthopedic service on consult -Will work on placement to [facility] facility Qualifiers: Encounter type: initial encounter Fracture alignment: nondisplaced Laterality: left Qualified Code(s): S72.145A - Nondisplaced intertrochanteric fracture of left femur, initial encounter for closed fracture (2) Iliac artery stenosis, bilateral: Lower Extremity Diagnostic Findings ? INDICATION: 68-year-old man with past medical history of smoking and hypertension was referred for evaluation of peripheral artery disease. According to patient he has been having severe lifestyle-limiting claudication. He has difficulty walking to the mailbox and has to rest. Pain becomes severe. He had CTA with run off done yesterday. It showed moderate to severe stenosis of bilateral iliac arteries. Plan for peripheral angiogram with possible percutanoeus intervention. ? Right lower extremity findings: Right common iliac artery: Severe, calcified 95% stenosis. Right external iliac artery: Patent. Right common femoral artery: Mild to moderate 20 to 30% stenosis. Right distal SFA: Total occlusion. Reconstitution of distal popliteal artery at bifurcation of anterior tibial and TP segment.? Three-vessel runoff to the foot.. ? Left lower extremity findings: Left common iliac artery: Patent. Left external iliac artery: Patent. Left common femoral artery: Total occlusion. Left superficial femoral artery: Below common femoral artery, imaging is of limited quality however appears profunda artery is patent and SFA is occluded. On left lower extremity, below the knee imaging not possible because of poor opacification of vessels.. Conclusions ? Severe bilateral peripheral artery stenosis. -We will continue to monitor, ultrasound peripheral extremities Concerns for acute limb ischemia postoperatively had arterial ultrasound IMPRESSION: The left iliac and common femoral arteries are occluded.? Remaining left lower extremity vessels demonstrate flow and no significant stenosis but monophasic waveforms and low flow velocities are noted. No occlusion on the right but there are monophasic waveforms and low flow velocity measurements as well. Bilateral inflow disease should be considered.? Consider further evaluation -Spoke to vascular surgery recommended medical management, with close outpatient follow-up -Currently on heparin drip will transition off to Eliquis continue aspirin, statin -Currently left lower extremity, is warm to touch, good capillary refill, no pain, DP PT pulses not palpable, which is not unusual given his SFA chronically being occluded, and left common being chronically occluded, now with left iliac, but does have collateral blood flow -Discharged on Eliquis, will need to follow-up with vascular surgery at [facility] on discharge (3) COPD (chronic obstructive pulmonary disease): (4) Benign essential HTN: (5) Nicotine dependence, cigarettes, with unspecified nicotine-induced disorders: Smoking cessation counseling Plan Denies a history of CAD, no history of strokes, no history of DVT no history of PE, does have history of COPD, does have a history of peripheral vascular disease, no plans on any bypass surgery for his peripheral vascular disease Attestations Medical Necessity Statement*: Patient requires hospitalization for left hip pain, left hip fracture, peripheral vascular disease Diagnoses Closed intertrochanteric fracture S72.145A Encounter type: initial encounter Fracture alignment: nondisplaced Laterality: left Iliac artery stenosis, bilateral I77.1 COPD (chronic obstructive pulmonary disease) J44.9 Benign essential HTN I10 Nicotine dependence, cigarettes, with unspecified nicotine-induced disorders F17.219
[2023-05-19 14:30] LABS: Ferritin 355 ng/mL (30-400); Iron 38 ug/dL (59-158); Percent Saturation 20.7 % (20-50); Total Iron Binding Capacity 183 mcg/dl; Unsaturated Iron Binding 145 ug/dL (112-347)
[2023-05-19] MEDS: sucralfate 1 gm Tablet PO (17:45)
[2023-05-19] MEDS: pantoprazole DR 40 mg Tablet PO (17:46)
[2023-05-19] MEDS: quetiapine 300 mg Tablet PO (19:43)
[2023-05-19] MEDS: atorvastatin 40 mg Tablet PO (19:43)
[2023-05-19 21:15] LABS: Hematocrit 29.4 % (37-53)
[2023-05-20] VITALS (8 sets, daily range): BP systolic 105–124; BP diastolic 58–78; PULSE 62–91; RESP 17–20; TEMP 36.4–36.8; O2SAT 92–98
[2023-05-20] MEDS: HYDROcodone-acetaminophen 5-325 mg Tablet PO ×4 (02:10→21:11)
[2023-05-20] MEDS: efferdent effervescent 1 EACH DENTAL (02:13)
[2023-05-20 05:01] LABS: Basophils % 0.6 %; Eosinophils # 0.2 10^3/uL (0.0-0.8); Eosinophils % 3.3 %; Lymphocytes # 1.5 10^3/uL (0.8-4.8); Lymphocytes % 21.8 %; Mean Corpuscular HGB Conc 33.7 g/dL (30-55); Mean Corpuscular Hemoglobin 32.7 pg (27-33); Mean Corpuscular Volume 97.1 fl (82-101); Mean Platelet Volume 8.4 fL (7.4-10.4); Monocytes # 0.6 10^3/uL (0.2-0.9); Monocytes % 8.4 %; Neutrophils % 65.5 %; Nucleated Red Blood Cells % 0 %; Platelet Count 175 10^3/cmm (157-399); Red Blood Count 2.78 10^6/uL (3.85-5.65); White Blood Count 7.02 10^3/uL (3.29-11.43)
[2023-05-20 05:21] LABS: Anion Gap 12.3 (5-19); Blood Urea Nitrogen 10 mg/dL (8-23); Calcium 8.9 mg/dL (8.5-10.5); Carbon Dioxide 26 mmol/L (22-29); Chloride 103 mmol/L (98-107); Glomerular Filtration Rate 135.2 mL/min (90-130); Glucose 110 mg/dL (65-115); Osmolality Calculated 284 mOsm/kg (285-295); Potassium 4.3 mmol/L (3.5-5.1); Sodium 137 mmol/L (136-145)
[2023-05-20] MEDS: apixaban 5 mg Tablet PO ×2 (08:51→21:08)
[2023-05-20] MEDS: pantoprazole DR 40 mg Tablet PO ×2 (08:51→17:26)
[2023-05-20] MEDS: sucralfate 1 gm Tablet PO ×2 (08:51→17:26)
[2023-05-20] MEDS: aspirin 81 mg EC Tablet PO (08:52)
[2023-05-20] MEDS: risperiDONE 1 mg Tablet PO ×2 (08:52→17:26)
[2023-05-20] MEDS: metoprolol tartrate 25 mg Tablet 12.5 MG PO ×2 (09:47→17:25)
[2023-05-20] MEDS: amlodipine 5 mg Tablet PO ×2 (09:47→17:26)
--- NOTE | 2023-05-20 10:54 | PC.SOCIAL ---
IMM update IMM updated with patient. Verbalized an understanding. Copy Pg 2 provided. Initialled, dated, timed, and placed in chart.
--- NOTE | 2023-05-20 16:15 | P.PN_ITS ---
Subjective Subjective: No new complaints today. Hemoglobin at 9.1. No pain in leg. Medications: Reviewed: Yes Vitals/I&O/Wt Last Vital Signs Temp 97.9 F 05/20/23 11:58 Pulse 76 05/20/23 11:58 Resp 18 05/20/23 11:58 BP 105/65 05/20/23 11:58 Pulse Ox 94 05/20/23 11:58 O2 Del Method Nasal Cannula 05/20/23 11:58 O2 Flow Rate 2 05/20/23 08:55 05/20/23 05/20/23 05/20/23 06:59 14:59 22:59 Intake Total 2219 / 0 Output Total 1000 / 2175 Balance -1000 / -1703 2219 Physical Exam Narrative: General: No acute distress, AO x3 HEENT: PERRLA, pupils bilaterally equal and reactive, pallors not present Chest: Normal vesicular breath sounds, no added sounds, equal good air entry bilaterally CVS: S1-S2 regular, no murmurs, no tachycardia, no gallops, no rubs Abdomen: Soft, nontender, no organomegaly, bowel sounds present Neuro: No focal deficits, no facial deformity, AO x3, power 5/5 in all limbs Urinary Catheter Management: Burgess: Cath Placed During This Visit: yes, but has since been removed by the nurse Reason for Continuing Indwelling Catheter: Decision to DC Catheter Urinary Catheter Date of Insertion: 05/15/23 Urinary Catheter Time of Insertion: 15:52 Date Urinary Catheter Removed: 05/18/23 Time Urinary Catheter Discontinued: 10:30 Data 05/20/23 04:32 05/20/23 04:32 Micro: Microbiology 05/19/23 15:31 Occult Blood (FIT) - Final Stool Routine Collection A&P Assessment and plan (1) Closed intertrochanteric fracture: -Pain control morphine -s/p surgical intervention -lovenox for dvt prophylaxis -Orthopedic service on consult Qualifiers: Encounter type: initial encounter Fracture alignment: nondisplaced Laterality: left Qualified Code(s): S72.145A - Nondisplaced intertrochanteric fracture of left femur, initial encounter for closed fracture (2) Iliac artery stenosis, bilateral: Patient typically follows with Dr. Cash at [facility] Dr. Osman Spoke to vascular surgery recommended medical management, with close outpatient follow-up -Currently on heparin drip transitioned to Eliquis -Currently left lower extremity, is warm to touch, good capillary refill, no pa in, DP PT pulses not palpable, which is not unusual given his SFA chronically being occluded, and left common being chronically occluded, now with left iliac, but does have collateral blood flow (3) COPD (chronic obstructive pulmonary disease): (4) Benign essential HTN: (5) Nicotine dependence, cigarettes, with unspecified nicotine-induced disorders: Smoking cessation counseling Plan Denies a history of CAD, no history of strokes, no history of DVT no history of PE, does have history of COPD, does have a history of peripheral vascular disease, no plans on any bypass surgery for his peripheral vascular disease Dispo: awaiting dispotion planning. unable to care for self at home Attestations Medical Necessity Statement*: appropriate disposiiton planning Coding Level of Care Code Acute Code for Chg Fwd Diagnoses Closed intertrochanteric fracture S72.145A Encounter type: initial encounter Fracture alignment: nondisplaced Laterality: left Iliac artery stenosis, bilateral I77.1 COPD (chronic obstructive pulmonary disease) J44.9 Benign essential HTN I10 Nicotine dependence, cigarettes, with unspecified nicotine-induced disorders F17.219
[2023-05-20] MEDS: quetiapine 300 mg Tablet PO (21:09)
[2023-05-20] MEDS: atorvastatin 40 mg Tablet PO (21:09)
[2023-05-21] VITALS (8 sets, daily range): BP systolic 102–115; BP diastolic 46–69; PULSE 73–85; RESP 16–20; TEMP 36.5–37.2; O2SAT 92–95
[2023-05-21 05:06] LABS: Basophils % 0.6 %; Eosinophils # 0.2 10^3/uL (0.0-0.8); Eosinophils % 3.2 %; Hematocrit 28.3 % (37-53); Lymphocytes # 1.6 10^3/uL (0.8-4.8); Lymphocytes % 25.9 %; Mean Corpuscular HGB Conc 33.9 g/dL (30-55); Mean Corpuscular Hemoglobin 33.3 pg (27-33); Mean Corpuscular Volume 98.3 fl (82-101); Mean Platelet Volume 8.3 fL (7.4-10.4); Monocytes # 0.6 10^3/uL (0.2-0.9); Monocytes % 9.6 %; Neutrophils # 3.75 10^3/uL (1.8-7.7); Neutrophils % 59.9 %; Nucleated Red Blood Cells % 0 %; Platelet Count 188 10^3/cmm (157-399); Red Blood Count 2.88 10^6/uL (3.85-5.65); Red Cell Distribution Width 13.1 % (12.1-15.1); White Blood Count 6.26 10^3/uL (3.29-11.43)
[2023-05-21 05:32] LABS: Anion Gap 11.3 (5-19); Blood Urea Nitrogen 13 mg/dL (8-23); Carbon Dioxide 27 mmol/L (22-29); Chloride 101 mmol/L (98-107); Glomerular Filtration Rate 135.2 mL/min (90-130); Glucose 102 mg/dL (65-115); Osmolality Calculated 280 mOsm/kg (285-295); Potassium 4.3 mmol/L (3.5-5.1); Sodium 135 mmol/L (136-145)
[2023-05-21] MEDS: aspirin 81 mg EC Tablet PO (08:46)
[2023-05-21] MEDS: pantoprazole DR 40 mg Tablet PO ×2 (08:46→17:20)
[2023-05-21] MEDS: metoprolol tartrate 25 mg Tablet 12.5 MG PO ×2 (08:46→17:19)
[2023-05-21] MEDS: apixaban 5 mg Tablet PO ×2 (08:47→20:42)
[2023-05-21] MEDS: risperiDONE 1 mg Tablet PO ×2 (08:47→17:19)
[2023-05-21] MEDS: sucralfate 1 gm Tablet PO ×2 (08:47→17:18)
[2023-05-21] MEDS: amlodipine 5 mg Tablet PO ×2 (08:47→17:18)
--- NOTE | 2023-05-21 16:30 | PM.PN ---
Subjective Subjective: No new complaints today. Hemoglobin stable at 9.6. No complaints of foot or leg pain. Medications: Reviewed: Yes Vitals/I&O/Wt Last Vital Signs Temp 97.7 F 05/21/23 11:39 Pulse 82 05/21/23 14:00 Resp 20 H 05/21/23 11:39 BP 102/64 05/21/23 11:39 Pulse Ox 95 05/21/23 11:39 O2 Del Method Nasal Cannula 05/21/23 11:39 O2 Flow Rate 1 05/21/23 08:44 05/21/23 05/21/23 05/21/23 06:59 14:59 22:59 Intake Total 120 / 3300 600 / 600 Output Total 1450 / 1450 Balance 120 / 3300 -850 / -850 Physical Exam Narrative: General: No acute distress, AO x3 HEENT: PERRLA, pupils bilaterally equal and reactive, pallors not present Chest: Normal vesicular breath sounds, no added sounds, equal good air entry bilaterally CVS: S1-S2 regular, no murmurs, no tachycardia, no gallops, no rubs Abdomen: Soft, nontender, no organomegaly, bowel sounds present Neuro: No focal deficits, no facial deformity, AO x3, power 5/5 in all limbs Urinary Catheter Management: Burgess: Cath Placed During This Visit: yes, but has since been removed by the nurse Reason for Continuing Indwelling Catheter: Decision to DC Catheter Urinary Catheter Date of Insertion: 05/15/23 Urinary Catheter Time of Insertion: 15:52 Date Urinary Catheter Removed: 05/18/23 Time Urinary Catheter Discontinued: 10:30 Data 05/21/23 04:30 05/21/23 04:30 A&P Assessment and plan (1) Closed intertrochanteric fracture: -Pain control morphine -s/p surgical fixation -Orthopedic service on consult Qualifiers: Encounter type: initial encounter Fracture alignment: nondisplaced Laterality: left Qualified Code(s): S72.145A - Nondisplaced intertrochanteric fracture of left femur, initial encounter for closed fracture (2) Iliac artery stenosis, bilateral: Patient typically follows with Dr. Cash at [facility] Patient has a known AAA aneurysm and chronically obstructed femoral arteries. He has seen vascular surgery in the past and recommended medical management as his surgery is anticipated to be extremely complex. Dr. Osman Spoke to vascular surgery this admission, recommended medical management, with close outpatient follow-up -Currently on Eliquis -Currently left lower extremity, is warm to touch, good capillary refill, no pain, DP PT pulses not palpable, which is not unusual given his SFA chronically being occluded, and left common being chronically occluded, now with left iliac, but does have collateral blood flow (3) COPD (chronic obstructive pulmonary disease): (4) Benign essential HTN: Blood pressure is currently well controlled (5) Nicotine dependence, cigarettes, with unspecified nicotine-induced disorders: Smoking cessation counseling Plan DVT prophylaxis: Eliquis Dispo: awaiting appropriate dispotion planning, plan transition to SNF. Attestations Medical Necessity Statement*: Appropriate disposition planning ongoing Coding Level of Care Code Acute Code for Chg Fwd Diagnoses Closed intertrochanteric fracture S72.145A Encounter type: initial encounter Fracture alignment: nondisplaced Laterality: left Iliac artery stenosis, bilateral I77.1 COPD (chronic obstructive pulmonary disease) J44.9 Benign essential HTN I10 Nicotine dependence, cigarettes, with unspecified nicotine-induced disorders F17.219
[2023-05-21] MEDS: quetiapine 300 mg Tablet PO (20:42)
[2023-05-21] MEDS: atorvastatin 40 mg Tablet PO (20:42)
[2023-05-21] MEDS: HYDROcodone-acetaminophen 5-325 mg Tablet PO (20:45)
[2023-05-22] VITALS: BP 110/50; PULSE 86; RESP 16; TEMP 36.8; O2SAT 96
[2023-05-22 04:10] VITALS: BP 105/65; PULSE 86; RESP 16; TEMP 37; O2SAT 92
[2023-05-22 06:00] VITALS: PULSE 63
[2023-05-22 06:04] LABS: Basophils % 0.6 %; Eosinophils # 0.2 10^3/uL (0.0-0.8); Eosinophils % 2.7 %; Hematocrit 27.7 % (37-53); Lymphocytes # 1.1 10^3/uL (0.8-4.8); Lymphocytes % 16.4 %; Mean Corpuscular HGB Conc 33.9 g/dL (30-55); Mean Corpuscular Hemoglobin 32.9 pg (27-33); Mean Corpuscular Volume 96.9 fl (82-101); Mean Platelet Volume 8.3 fL (7.4-10.4); Monocytes # 0.6 10^3/uL (0.2-0.9); Monocytes % 8.3 %; Neutrophils # 4.72 10^3/uL (1.8-7.7); Neutrophils % 71.2 %; Nucleated Red Blood Cells % 0 %; Platelet Count 222 10^3/cmm (157-399); Red Blood Count 2.86 10^6/uL (3.85-5.65); Red Cell Distribution Width 13.2 % (12.1-15.1); White Blood Count 6.63 10^3/uL (3.29-11.43)
[2023-05-22 06:25] LABS: Anion Gap 13.2 (5-19); Blood Urea Nitrogen 14 mg/dL (8-23); Calcium 8.8 mg/dL (8.5-10.5); Carbon Dioxide 25 mmol/L (22-29); Chloride 102 mmol/L (98-107); Glomerular Filtration Rate 113.2 mL/min (90-130); Glucose 103 mg/dL (65-115); Osmolality Calculated 283 mOsm/kg (285-295); Potassium 4.2 mmol/L (3.5-5.1); Sodium 136 mmol/L (136-145)
[2023-05-22 07:14] VITALS: BP 108/72; PULSE 74; RESP 16; TEMP 36.4; O2SAT 93
[2023-05-22] MEDS: amlodipine 5 mg Tablet PO (08:02)
[2023-05-22] MEDS: sucralfate 1 gm Tablet PO (08:02)
[2023-05-22] MEDS: pantoprazole DR 40 mg Tablet PO (08:02)
[2023-05-22] MEDS: risperiDONE 1 mg Tablet PO (08:02)
[2023-05-22] MEDS: apixaban 5 mg Tablet PO (08:02)
[2023-05-22] MEDS: aspirin 81 mg EC Tablet PO (08:02)
[2023-05-22] MEDS: metoprolol tartrate 25 mg Tablet 12.5 MG PO (08:02)
[2023-05-22 11:12] VITALS: BP 99/64; PULSE 75; RESP 18; TEMP 36.4; O2SAT 94
--- NOTE | 2023-05-22 11:29 | PC.SOCIAL ---
Imm update Imm updated with patient at bedside. Copy of page 2 provided. Patient verbalized understanding. Copy in chart initialed, dated and timed.
--- NOTE | 2023-05-22 12:11 | PM.DCS ---
Discharge Providers Date of Admission: 05/15/23 16:34 Date of Discharge: May 22, 2023 Attending Provider at Admission: Nick Osman MD Attending Provider at Discharge: Gillian Mcdaniel MD Primary Care Provider: Lula Torres DO Diagnoses at Discharge Discharge Diagnosis (1) Closed intertrochanteric fracture: Status: Acute Qualifiers: Encounter type: initial encounter Fracture alignment: nondisplaced Laterality: left Qualified Code(s): S72.145A - Nondisplaced intertrochanteric fracture of left femur, initial encounter for closed fracture (2) Iliac artery stenosis, bilateral: Status: Acute (3) COPD (chronic obstructive pulmonary disease): Status: Chronic (4) Benign essential HTN: Status: Acute (5) Nicotine dependence, cigarettes, with unspecified nicotine-induced disorders: Status: Chronic Reason for Visit Reason for Visit: fall Hospital Course Hospital Course Al Han is a 67 year old male with a past medical history of schizoaffective disorder, peripheral vascular disease, smoking history, hypertension, history of COPD history of aortic aneurysm, history of bladder cancer, who presented to [facility] for a mechanical fall and left hip pain when he was getting out of the bathtub. he was found to have Left intertrochanteric hip fracture for which he underwent Left intramedullary hip nail on 05/17/23. His hospitalization was complicated by concern for developing of ischemic left foot, he has a known history of severe peripheral vascular disease, known history of poor blood flow in the left iliac, occlusion of the left common femoral, he follows with vascular surgery at [facility] (Dr. Naranjo) and may be planned for bypass surgery down the line, but no immediate plans for the same. After his surgery, his left foot was cool, clammy, poor pulses, arterial ultrasound confirmed that there is poor blood flow in the left iliac, left common femoral, likely blood flow around with collateral flow Case was discussed by Dr. Osman with Dr. Mendez, no minimally invasive interventions indicated. He also spoke with vascular surgery at [facility] where they reviewed the films, and recommended medical management with outpatient follow-up. Eliquis 5mg BID was added to his regimen per recommendations. Currently his left lower extremity appears stable, there are no signs of impending gangrene. He is continued on aspirin, statin additionally. Denies any current pain. He has a follow up appt with urology in [place]( Dr. Ramirez) on 05/28/23 with planned cystoscopy on 05/30/23. Physical Exam Narrative: General: No acute distress, AO x3 HEENT: PERRLA, pupils bilaterally equal and reactive, pallors not present Chest: Normal vesicular breath sounds, no added sounds, equal good air entry bilaterally CVS: S1-S2 regular, no murmurs, no tachycardia, no gallops, no rubs Abdomen: Soft, nontender, no organomegaly, bowel sounds present Neuro: No focal deficits, no facial deformity, AO x3, power 5/5 in all limbs Urinary Catheter Management: Burgess: Cath Placed During This Visit: yes, but has since been removed by the nurse Reason for Continuing Indwelling Catheter: Decision to DC Catheter Urinary Catheter Date of Insertion: 05/15/23 Urinary Catheter Time of Insertion: 15:52 Date Urinary Catheter Removed: 05/18/23 Time Urinary Catheter Discontinued: 10:30 Discharge Data Studies Completed and Pending Completed Studies During Hospitalization Category Date Time Status XR KUB portable [id number] Routine Exams 05/19/23 10:31 Completed XR chest 1V portable [id number] Urgent Exams 05/15/23 14:07 Completed XR hip LT 2-3V wo/w pel* [id number] Routine Exams 05/17/23 Completed XR hip LT 2-3V wo/w pel* [id number] Stat Exams 05/15/23 14:06 Completed US arterial duplex lower extremity bilat [CV arterial Ultrasound 05/17/23 14:47 [place] [id number]] Stat Pending at discharge Category Date Time Status SARS Covid-2 Antigen Routine Lab 05/22/23 11:53 Ordered Radiology Impressions Duplex Scan Lower Extremity Artery 05/17/23 14:47 IMPRESSION: The left iliac and common femoral arteries are occluded. Remaining left lower extremity vessels demonstrate flow and no significant stenosis but monophasic waveforms and low flow velocities are noted. No occlusion on the right but there are monophasic waveforms and low flow velocity measurements as well. Bilateral inflow disease should be considered. Consider further evaluation with CTA, DSA, or MRA. THIS REPORT CONTAINS FINDINGS THAT MAY BE CRITICAL TO PATIENT CARE. The findings were verbally communicated via telephone conference with NICK OSMAN at 4:13 PM CDT on 05/17/2023. The findings were acknowledged and understood. KUB X-Ray 05/19/23 10:31 IMPRESSION: 1. Moderate constipation without bowel dilation to indicate obstruction. 2. Degenerative changes in the spine. 3. 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 Laboratory Results WBC 6.63 10^3/uL (3.29-11.43) 05/22/23 05:28 RBC 2.86 10^6/uL (3.85-5.65) L 05/22/23 05:28 Hgb 9.40 g/dL (11.27-16.99) L 05/22/23 05:28 Hct 27.7 % (37-53) L 05/22/23 05:28 MCV 96.9 fl (82-101) 05/22/23 05:28 MCH 32.9 pg (27-33) 05/22/23 05:28 MCHC 33.9 g/dL (30-55) 05/22/23 05:28 RDW 13.2 % (12.1-15.1) 05/22/23 05:28 Plt Count 222 10^3/cmm (157-399) 05/22/23 05:28 MPV 8.3 fL (7.4-10.4) 05/22/23 05:28 Neut % (Auto) 71.2 % 05/22/23 05:28 Lymph % (Auto) 16.4 % 05/22/23 05:28 [place] % (Auto) 8.3 % 05/22/23 05:28 Eos % (Auto) 2.7 % 05/22/23 05:28 Baso % (Auto) 0.6 % 05/22/23 05:28 Neut # (Auto) 4.72 10^3/uL (1.8-7.7) 05/22/23 05:28 Lymph # (Auto) 1.1 10^3/uL (0.8-4.8) 05/22/23 05:28 [place] # (Auto) 0.6 10^3/uL (0.2-0.9) 05/22/23 05:28 Eos # (Auto) 0.2 10^3/uL (0.0-0.8) 05/22/23 05:28 Baso # (Auto) 0.0 10^3/uL (0.0-0.1) 05/22/23 05:28 Nucleated RBC % (auto) 0 % 05/22/23 05:28 Nucleated RBCs # 0.0 /100WBC 05/22/23 05:28 PT 13.20 SECONDS (12.1-14.9) 05/15/23 14:09 INR 0.97 (0.8-1.2) 05/15/23 14:09 APTT 27.2 SECONDS (23.9-36.7) D 05/18/23 12:18 Sodium 136 mmol/L (136-145) 05/22/23 05:28 Potassium 4.2 mmol/L (3.5-5.1) 05/22/23 05:28 Chloride 102 mmol/L (98-107) 05/22/23 05:28 Carbon Dioxide 25 mmol/L (22-29) 05/22/23 05:28 Anion Gap 13.2 (5-19) 05/22/23 05:28 BUN 14 mg/dL (8-23) 05/22/23 05:28 Creatinine 0.7 mg/dL (0.7-1.2) 05/22/23 05:28 GFR Calculation 113.2 mL/min (90-130) 05/22/23 05:28 Glucose 103 mg/dL (65-115) 05/22/23 05:28 Estimat Average Glucose 111 05/15/23 14:09 Hemoglobin A1c 5.5 % (4.0-6.0) 05/15/23 14:09 Calculated Osmolality 283 mOsm/kg (285-295) L 05/22/23 05:28 Lactate 1.2 mmol/L (0.5-2.2) 05/17/23 15:23 Calcium 8.8 mg/dL (8.5-10.5) 05/22/23 05:28 Phosphorus 3.1 mg/dL (2.5-4.5) 05/16/23 06:00 Magnesium 1.8 mg/dL (1.7-2.3) 05/19/23 04:48 Iron 38 ug/dL (59-158) L 05/19/23 04:48 TIBC 183 mcg/dl 05/19/23 04:48 % Saturation 20.7 % (20-50) 05/19/23 04:48 Unsat Iron Binding 145 ug/dL (112-347) 05/19/23 04:48 Ferritin 355 ng/mL (30-400) 05/19/23 04:48 Total Bilirubin 0.4 mg/dL (0.15-1.2) 05/16/23 06:00 AST 16 U/L (0-40) 05/16/23 06:00 ALT 8 U/L (0-41) 05/16/23 06:00 Alkaline Phosphatase 57 U/L (40-130) 05/16/23 06:00 Creatine Kinase 133 U/L (39-308) 05/15/23 14:09 Troponin T Baseline 7 ng/L (0-15) 05/15/23 17:43 Troponin T 120 Minute 9.17 ng/L (0-15) 05/15/23 19:48 Delta Troponin T 2.17 ABS# (0-10) 05/15/23 19:48 Troponin T Hi Sens 6Hr 10.41 ng/L (0-15) 05/15/23 23:25 Troponin T Hi Sens 6Hr Delta 3.41 ng/L (0-12) 05/15/23 23:25 NT-Pro-B Natriuret Pep 36 pg/mL (0-125) 05/15/23 14:09 Total Protein 6.1 g/dL (6.6-8.7) L 05/16/23 06:00 Albumin 3.9 g/dL (3.5-5.2) 05/16/23 06:00 Globulin 2.2 g/dL (1.3-4.6) 05/16/23 06:00 Triglycerides 93 mg/dL (0-150) 05/15/23 17:43 Cholesterol 168 mg/dL (0-200) 05/15/23 17:43 LDL Cholesterol, Calc 104 mg/dL (50-129) 05/15/23 17:43 HDL Cholesterol 45 mg/dL (60-100) L 05/15/23 17:43 LDL/HDL Ratio 2.31 RATIO (0.00-3.22) 05/15/23 17:43 Cholesterol/HDL Ratio 3.73 mg/dL (1.0-5.00) 05/15/23 17:43 TSH 0.57 uIU/mL (0.27-4.20) 05/15/23 17:43 Urine Color Yellow (Yellow) 05/15/23 15:42 Urine Appearance Clear (CLEAR) 05/15/23 15:42 Urine pH 5 (5-7) 05/15/23 15:42 Ur Specific [place] 1.020 (1.005-1.030) 05/15/23 15:42 Urine Protein Neg (Negative) 05/15/23 15:42 Urine Glucose (UA) Norm (Normal) 05/15/23 15:42 Urine Ketones Negative (Negative) 05/15/23 15:42 Urine Blood 3+ (Negative) H 05/15/23 15:42 Urine Nitrate Negative (Negative) 05/15/23 15:42 Urine Bilirubin Neg (Negative) 05/15/23 15:42 Urine Urobilinogen Norm mg/dL (Negative) 05/15/23 15:42 Ur Leukocyte Esterase Negative (Negative) 05/15/23 15:42 Urine RBC 5-10 /hpf (0-2) H 05/15/23 15:42 Urine WBC 0-4 /hpf (0-5) H 05/15/23 15:42 Ur Squamous Epith Cells 0-4 /hpf (0-5) H 05/15/23 15:42 Amorphous Sediment Not Reportable 05/15/23 15:42 Urine Bacteria None /hpf (NONE) 05/15/23 15:42 Hyaline Casts 0-4 /lpf H 05/15/23 15:42 Urine Mucus 1+ /hpf 05/15/23 15:42 Vitals Last Vital Signs Temp 97.5 F L 05/22/23 11:12 Pulse 75 05/22/23 11:12 Resp 18 05/22/23 11:12 BP 99/64 05/22/23 11:12 Pulse Ox 94 05/22/23 11:12 O2 Del Method Room Air 05/22/23 11:12 O2 Flow Rate 1 05/22/23 08:00 Discharge Plan Discharge Patient Disposition: Xfer SNF Condition: Stable Prescriptions: New hydrocodone-acetaminophen 5-325 mg Tablet 1 tab PO Q6H PRN (Reason: Breakthrough Pain) 7 Days Qty: 28 0RF aspirin 81 mg Tablet,Delayed Release (Dr/Ec) 81 mg PO DAILY Qty: 30 0RF pantoprazole 40 mg Tablet,Delayed Release (Dr/Ec) 40 mg PO BID 30 Days Qty: 60 0RF atorvastatin 40 mg Tablet 40 mg PO BEDTIME 30 Days Qty: 30 0RF Eliquis 5 mg Tablet 5 mg PO Q12H 30 Days Qty: 60 1RF Continued amlodipine [Norvasc] 5 mg tablet 5 mg PO BID 90 Days Qty: 180 1RF metoprolol tartrate 25 mg tablet 12.5 mg PO BID Qty: 90 1RF albuterol sulfate [Ventolin HFA] 90 mcg/actuation HFA aerosol inhaler 2 puff inhalation Q6H PRN (Reason: shortness of breath or wheezing) Qty: 8.5 3RF triamcinolone acetonide 0.1 % cream 1 applic topical DAILY PRN (Reason: Rash) quetiapine 300 mg tablet 300 mg PO .HS Qty: 90 0RF risperidone 1 mg tablet 1 mg PO BID Qty: 180 0RF trihexyphenidyl 2 mg tablet 2 mg PO TID Qty: 270 0RF Discharge Orders: Discharge Order (Routine); Ordered 05/22/23 Ordered By: Gillian Mcdaniel Other Ambulatory Orders: DME: Ricardo (Order) Location: None Selected Ordered By: Agustin Arechiga DME: Ricardo (Order) Location: None Selected Ordered By: Agustin Arechiga Referrals: [facility] [Outside] [facility] [Outside] Lula Torres DO [Primary Care Provider] - 7-10 days Jeffery Ramirez MD [Referring] - 05/28/23 10:30 am Discharge Diet: Cardiac Discharge Activity: Resume usual activity Patient Instructions: How to Stop Smoking (DC), Cigarette Smoking and Your Health (GEN) Activity Restrictions/Additional Instructions: You are being discharged from the hospital today during which time you have been under the care of Dr Arechiga. You had a Left/Right hip fracture. You were treated for this injury with IM nail. You may resume you normal diet (including any special diets as directed by your primary doctor) as well as your home medications. You should follow up with you primary doctor if you have any questions regarding medication you took prior to your stay in the hospital. You may take your pain medication as prescribed. After the first few days, take your pain medication as needed. Do not drive or drink alcohol while taking your pain medication. Your injury may increase your risk of developing a blood clot,or DVT, in your arm or leg. This could potentially dislodge and travel to your lungs and become a life threatening condition called apulmonary embolus,or PE. You have been prescribed eliquis to be taken to prevent this. Frequent movement of the legs will also help prevent this from occurring. If you develop any new or worsening cough, chestpain, bloody sputum or shortness of breath, call 911 or go to the EmergencyRoom. Always keep your surgical incision/dressing clean and dry. If you experience increasing pain at your incision site, redness, swelling, increasing discharge, foul odors, or fevers (greater than 100.4), night sweats or chills you should call the office at the above number. If you feel this is an emergency you should be evaluated in the Emergency Department of a nearby hospital. Orthopedic Patient Instructions Summary: Weight Bearing: WBAT Activity: as tolerated. Diet: regular. Wound Care: Keep dressing clean and dry. Change as needed Anticoagulation: Lovenox Pain Medication: Take only as needed. Ice, rest and elevation will be of great benefit. Please plan to follow-up [facility] Dr Arechiga in 2 weeks. You will need to call the clinic [phone] to schedule. Do not hesitate to call the office with any questions or concerns. Discharge Attestations Time Spent in Discharge Care*: greater than 30 min Quality Metrics Clinical Quality Measures [ No reported AMI, CVA or VTE this stay] Coding Level of Care Code Acute Code for Chg Fwd Diagnoses Closed intertrochanteric fracture S72.145A Encounter type: initial encounter Fracture alignment: nondisplaced Laterality: left Iliac artery stenosis, bilateral I77.1 COPD (chronic obstructive pulmonary disease) J44.9 Benign essential HTN I10 Nicotine dependence, cigarettes, with unspecified nicotine-induced disorders F17.219
[2023-05-22 12:35] LABS: SARS Covid-2 Antigen negative (Negative)
--- NOTE | 2023-05-22 13:12 | PC.NURSE ---
Report called to GARY Aly at [facility]
[2023-05-22 14:05] VITALS: BP 99/64; PULSE 75; RESP 18; TEMP 36.4; O2SAT 94
== END 2023-05-22 14:05 | disposition skilled nursing facility (03) | DRG 481 ==
LOC: ER 15:13 → MEDSURG 16:35
PROVIDERS: Orthopaedic Surgery; Admitting Provider Family Medicine; Emergency Provider Physician Assistant; PCP Family Medicine; Visit Provider Student in an Organized Health Care Education/Training Program
PROC: 0QH736Z Insertion of Intramedullary Internal Fixation Device into Left Upper Femur, Percutaneous Approach (ICD-10-PCS; CPT 27245; principal; 2023-05-17 08:00)
DX: S72.145A Nondisplaced intertrochanteric fracture of left femur, initial encounter for closed fracture (principal); F20.5 Residual schizophrenia; I74.5 Embolism and thrombosis of iliac artery; W18.30XA Fall on same level, unspecified, initial encounter; I77.1 Stricture of artery; J44.9 Chronic obstructive pulmonary disease, unspecified; I10 Essential (primary) hypertension; F17.210 Nicotine dependence, cigarettes, uncomplicated; I73.9 Peripheral vascular disease, unspecified; Z85.51 Personal history of malignant neoplasm of bladder; M16.0 Bilateral primary osteoarthritis of hip; Z79.51 Long term (current) use of inhaled steroids; F10.21 Alcohol dependence, in remission; I71.40 Abdominal aortic aneurysm, without rupture, unspecified
CPT/HCPCS: 36415; 51702; 71045; 73502; 74018; 76000; 80048; 80053; 80061; 81001; 82274; 82550; 82728; 83036; 83540; 83550; 83605; 83735; 83880; 84100; 84443; 84484; 85014; 85018; 85025; 85610; 85730; 87426; 93005; 93925; 94640; 96365; 96372; 97110; 97116; 97162; 97165; 97530; 97535; 99285; C1713; C9113; J0690; J1644; J1650; J1940; J2270; J2371; J2405; J2704; J3010; J7030

== ENCOUNTER → 2023-06-04 10:30 | Outpatient (BNVA) | payer MEDICARE, SELFPAY | PROVIDERS: PCP Family Medicine; Visit Provider Physician Assistant | DX: S72.142D Displaced intertrochanteric fracture of left femur, subsequent encounter for closed fracture with routine healing; X58.XXXD Exposure to other specified factors, subsequent encounter; Z96.7 Presence of other bone and tendon implants | CPT/HCPCS: 73502; 99024 ==

== ENCOUNTER → 2023-07-11 10:45 | Outpatient (BNVA) | payer MEDICARE, SELFPAY | PROVIDERS: PCP Family Medicine; Visit Provider Physician Assistant | DX: S72.142D Displaced intertrochanteric fracture of left femur, subsequent encounter for closed fracture with routine healing (principal); X58.XXXD Exposure to other specified factors, subsequent encounter | CPT/HCPCS: 73502; 99024 ==

== ENCOUNTER → 2023-08-29 11:27 | Outpatient (BNVA) | payer MEDICARE, SELFPAY | PROVIDERS: PCP Family Medicine; Visit Provider Physician Assistant | DX: S72.142D Displaced intertrochanteric fracture of left femur, subsequent encounter for closed fracture with routine healing (principal); X58.XXXD Exposure to other specified factors, subsequent encounter | CPT/HCPCS: 73502; 99024 ==

== ENCOUNTER 2023-11-07 10:10 | Outpatient (CLI) | payer MEDICARE, SELFPAY ==
--- NOTE | 2023-11-07 11:00 | CT_ITS ---
WS: [id number] LDCT LUNG CANCER SCREENING HISTORY: screening TECHNIQUE: Axial imaging performed from the apices to 1 cm below the costophrenic angles. Coronal and sagittal reformats are submitted with axial MIP series. All CT scans at [facility] use at least one of these dose optimization techniques: automated exposure control; mA and/or kV adjustment per patient size (includes targeted exams where dose is matched to clinical indication); or iterativ e reconstruction. DLP: 67.00 mGy.cm DIvol: Mean CTDIvol: 1.00 (mGy),Mean CTDIvol: 1.30 (mGy) COMPARISON: 10/31/2022 Diagnostic quality: Satisfactory Lungs: Moderate pulmonary hyperinflation. Centrilobular emphysema. There are a few benign cysts calci fied granulomata. No mass or nodule. No endobronchial lesions. Heart: Normal size heart with no pericardial effusion.. Other findings: Atherosclerosis thoracic aorta. No aneurysm. Normal size pulmonary artery. There are small mediastinal and hilar lymph nodes. Moderate suprarenal aortic calcifications. No adrenal mass. IMPRESSION: CT/CT lung screening [id number] LUNG-RADS: 1-Negative FOLLOW UP: 12 Month: Continue annual screening with LDCT OTHER FINDINGS (S MODIFIER): None.
== END 2023-11-07 10:11 | disposition home or self-care (01) ==
LOC: RAD 10:11
PROVIDERS: PCP Family Medicine; Visit Provider Family Medicine
DX: F17.219 Nicotine dependence, cigarettes, with unspecified nicotine-induced disorders (principal)
CPT/HCPCS: 71271

== ENCOUNTER → 2023-11-21 12:07 | Outpatient (BNVA) | payer MEDICARE, SELFPAY | PROVIDERS: PCP Family Medicine; Visit Provider Internal Medicine | DX: I73.9 Peripheral vascular disease, unspecified (principal); I10 Essential (primary) hypertension; F17.210 Nicotine dependence, cigarettes, uncomplicated | CPT/HCPCS: 99213 ==

== ENCOUNTER → 2024-04-08 16:35 | Outpatient (BNVA) | payer MEDICARE, SELFPAY | PROVIDERS: PCP Family Medicine; Visit Provider Family Medicine | DX: N39.0 Urinary tract infection, site not specified (principal); R31.9 Hematuria, unspecified | CPT/HCPCS: 81000; 87086 ==

== ENCOUNTER 2024-06-05 06:09 | Outpatient (CLI) | payer MEDICARE, SELFPAY ==
[2024-06-05 06:36] VITALS: BMI 21.3
--- NOTE | 2024-06-05 06:41 | ECG_ITS ---
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
--- NOTE | 2024-06-05 06:42 | NMCV_ITS ---
NM rell perf SPECT r/s* [id number] Al Han Age: 68 Gender: M : 1955 Exam Date: 06/05/2024 07:15 Ordering Phys: Michoacano Mendez M.D ([email or web address]) Technologist: SHEREEN Haro Exam Location: [facility] Indications: CP STRESS TEST Please see separate stress test report in [facility] for full findings IMAGE PROTOCOL Rest/Stress 1 Lexiscan Day Radiopharmaceutical Dose (mCi) Administration Site Administered by Rest: Tc-99m 10.9 IV SHEREEN Haro Sestamibi Stress:Tc-99m 33.0 IV SHEREEN Villafuerte Sestamibi Rest: 05-Jun-2024 60 Discovery 630 Stress: 05-Jun-2024 30 Discovery 630 0.4mg Lexiscan. Images obtained in supine and prone position. SPECT RESULTS Technical Quality: Good Raw Data Analysis: Adequate Image Corrections: No attenuation or motion correction applied Summed Stress Score: 2 Summed Rest Score: 1 Summed Difference Score: 2 PERFUSION FINDINGS Large area of patchy decreased tracer uptake noted in basal to distal inferior inferoseptal and inferoseptal apical wall of the left ventricle noted rest images which improved significantly over stress images suggestive of attenuation artifact. FUNCTIONAL RESULTS (calculated via Gated SPECT) Stress Image LV EF (%): 70 Stress EDV (mL):102 TID: 1.31 Stress ESV (mL):31 FUNCTIONAL FINDINGS: There is normal left ventricular systolic function. IMPRESSIONS Large area of persistently decreased tracer uptake noted in basal to distal inferior inferoseptal and inferoapical wall on the rest images which improved significantly over stress images suggestive of artifact. This study is negative for ischemia.TID ratio was elevated at 1.3 which could be due to multivessel coronary disease versus left ventricular hypertrophy. Brian Bishop MD (Electronically Signed) Final Date: 05 June 2024 17:31 S
[2024-06-05] MEDS: regadenoson 0.4 Mg/5 ml Syringe IVP (08:00)
[2024-06-05 08:08] VITALS: BP 122/66; PULSE 92
== END 2024-06-05 06:10 | disposition home or self-care (01) ==
LOC: CDL 06:18
PROVIDERS: PCP Family Medicine; Visit Provider Internal Medicine
DX: Z01.818 Encounter for other preprocedural examination (principal); R06.02 Shortness of breath; R94.39 Abnormal result of other cardiovascular function study
CPT/HCPCS: 36415; 78452; 93017; 96374; A9500; J2785

== ENCOUNTER → 2024-06-18 09:52 | Outpatient (BNVA) | payer MEDICARE, SELFPAY | PROVIDERS: PCP Family Medicine; Visit Provider Family Medicine | DX: R79.89 Other specified abnormal findings of blood chemistry (principal); I10 Essential (primary) hypertension; J44.9 Chronic obstructive pulmonary disease, unspecified; I73.9 Peripheral vascular disease, unspecified; Z79.899 Other long term (current) drug therapy; F20.5 Residual schizophrenia | CPT/HCPCS: 80053; 80061; 82306; 82607; 83036; 83735; 84443; 85025 ==

== ENCOUNTER → 2024-08-12 10:30 | Outpatient (BNVA) | payer MEDICARE, SELFPAY | PROVIDERS: PCP Family Medicine; Visit Provider Family Medicine | DX: R31.0 Gross hematuria (principal); C67.9 Malignant neoplasm of bladder, unspecified | CPT/HCPCS: 80053 ==

== ENCOUNTER → 2024-11-19 11:46 | Outpatient (BNVA) | payer MEDICARE, SELFPAY | PROVIDERS: PCP Family Medicine; Visit Provider Internal Medicine | DX: I73.9 Peripheral vascular disease, unspecified (principal); I10 Essential (primary) hypertension; Z87.891 Personal history of nicotine dependence | CPT/HCPCS: 99213 ==

== ENCOUNTER 2024-12-15 15:40 | Outpatient (CLI) | payer MEDICARE, SELFPAY ==
[2024-12-15 16:21] LABS: Bacteria Urine None Seen /hpf; RBC Urine 21-50 /hpf (0-2); Squamous Epithelial Cell Urine 0-5 /hpf (0-5); WBC Urine 0-5 /hpf (0-5)
[2024-12-15 17:06] LABS: Urine Appearance Clear (CLEAR); Urine Color Yellow (Yellow)
[2024-12-15 17:07] LABS: Add Urine Microscopic? YES; Bilirubin Urine Neg (Negative); Blood Urine 3+ (Negative); Glucose Urine UA Norm (Normal); Ketones Urine Negative (Negative); Leukocyte Esterase Urine Negative (Negative); Nitrate Urine Negative (Negative); Protein Urine Trace (Negative); Urobilinogen Urine Norm (Negative); pH Urine 6 (5-7)
== END 2024-12-15 15:41 | disposition home or self-care (01) ==
PROVIDERS: PCP Family Medicine; Visit Provider Family Medicine
DX: N39.0 Urinary tract infection, site not specified (principal)
CPT/HCPCS: 81001; 87086